=== PATIENT | female | born 1935 | race Caucasian/White ===

== ENCOUNTER 2023-05-03 15:39 | Inpatient (IN) | payer OTHER, SELFPAY ==
[2023-05-03] VITALS (10 sets, daily range): BP systolic 111–128; BP diastolic 69–85; BMI 32.8; BMI 36.3
--- NOTE | 2023-05-03 11:43 | ED.GENMED ---
History of Present Illness
<Kareen Montilla NP - Last Filed: 05/03/23 20:36>
General
Chief Complaint: Breathing Problem
Source: patient
Exam Limitations: none
Time Seen by Provider: 05/03/23 11:35
Nursing documentation reviewed up to this point in time: agreed with
Travel History
Have you had any contact with someone who has COVID-19?: Unable to Answer
Do you have any symptoms of coronavirus? Fever > 100 degrees, chills, cough, shortness of breath, sore throat, loss of taste or smell, muscle aches, or headache?: Unable to Answer
History of Present Illness
History of Present Illness:
87-year-old female with history of CHF with PEF, dysphagia, ambulatory dysfunction, COPD, HLD, HTN, A-fib, hypothyroid, severe mood disorder presents from home via ambulance for hypoxemia, SOB, cough. Pt denies CP, abd pain, n/v/d/c.
Spoke with son Jeet Marino her daughter, with whom she lives lives, stated that a week ago she got a cold like everybody else in the household, no fever, palliative care nurses, and 'quite frequently,' last week it was 'just a cold,'
Daughter has been giving her hot tea and lemon, she thinks she may have given her too much fluid over the past week
Feet are a little swollen and 'more puffy,' given an extra Lasix 10 mg x 2 days, per her tensile tester Stacy Garcia and Dr. DAWIT Smith, last extra dose was 2 days ago,
Palliative care came in today
They recommend that she get sent here because her heart rate is high and her oxygen 'was on the low side.' Ambulance personnel said mid to high 80s. Daughter states she is typically 95 to 96% on room air, no home oxygen,
She was on home oxygen after being discharged in March, it was DC'd after a week
Daughter concerned as patient is on psych meds and depression medication and every time she gets sent to the hospital they take her off of that medicine. Requesting she not be taking off of it this admission.
Patient had all her meds this morning
Past History
<Kareen Montilal, DEPUTY DIRECTOR OF FINANCE - Last Filed: 05/03/23 20:36>
Past History
ED Past Medical History: Arrthythmia (Atrial fibrillation on aspirin), HTN, Hypercholesterolemia and Psychiatric (Mood disorder)
Social History
Tobacco: Non-smoker
Alcohol: None
Living: with family
Review of Systems
<Kareen Montilla, DEPUTY DIRECTOR OF FINANCE - Last Filed: 05/03/23 20:36>
Review of Systems
Allergies reviewed?: Yes
All Other Systems: ROS reviewed and negative except as documented in HPI and ROS
Constitutional: Denies fever
Respiratory: Reports cough and trouble breathing
Cardiac: Denies chest pain
ABD/GI: Denies abdominal pain, nausea, vomiting or diarrhea
: Reports incontinence; Denies dysuria or difficulty voiding
Musculoskeletal: Reports edema
Skin: Reports no symptoms
Neurological: Reports other (Dementia, speech garbled but comprehensible (chronic))
Phy Exam
<Kareen Montilla, DEPUTY DIRECTOR OF FINANCE - Last Filed: 05/03/23 20:36>
Physical Exam
Physical Exam:
GENERAL: No acute distress. A&Ox3.
CONSTITUTIONAL: Afebrile.
EYES: PERRL, conjunctivae normal
ENMT: Dry mucus membranes, Pharynx nl
RESPIRATORY: Regular respirations, mildly labored, lungs with crackles in bases, coarse junky cough. Pulse ox 88% RA, 96% on 4L NC
CARDIOVASCULAR: Irregular rate and rhythm, no murmurs, no rubs.
GI: Soft, nontender, normal BS
MUSCULOSKELETAL: Moves with ease. Well perfused.
SKIN: Warm, dry, pink
PSYCH: Normal mood and affect. Well kept, interactive and appropriate
NEUROLOGIC: Awake, alert, . No focal neurological deficits
Scores
<Kareen Montilla, DEPUTY DIRECTOR OF FINANCE - Last Filed: 05/03/23 20:36>
Heart Failure Risk
Heart Failure Risk Score: Yes
History of Stroke or TIA: Yes
History of intubation for respiratory distress: No
Heart rate on ED arrival >/= 110: No
SaO2 <90% on arrival on room air: No
HR >/=110 during 3min walk test (or too ill to perform test): No
ECG has acute ischemic changes: No
Urea >/=12mmol/L (BUN 33.6mg/dL): No
Serum CO2>/=35mmol/L: No
Troponin I or T elevated to NM Level (0.4mg/dL): No
NT-proBNP >/=5,000ng/L (5,000pg/ml): No
HF Risk Score: 1
Admission Status: MEDIUM RISK 5.1% Consider observation or discharge to home with homecare & f/u visit to PCP/[employer], or SNF for treatment
Course
<Kareen Montilla, DEPUTY DIRECTOR OF FINANCE - Last Filed: 05/03/23 20:36>
Orders/Labs/Results
Orders:
Orders
05/03/23 11:30
Electrocardiogram (*1) Urgent
Reason for Study: Shortness of Breath
05/03/23 11:31
EKG- Treatment ONCE
05/03/23 11:40
Influenza A+B Rapid Molecular Urgent
JOSHUA Source: Nasal Swab
Specimen Description:
05/03/23 11:41
COVID-19 Antigen Urgent
Source: Nasal Swab
Complete Blood Count/With Diff Urgent
Comprehensive Metabolic Panel Urgent
05/03/23 11:52
CR Chest Portable - 1 View Urgent
Comment:
Reason For Exam: SOB. hypoxia
Reason Study Needs to be Portable: Other
05/03/23 12:15
NT-proBNP Urgent
Troponin I Urgent
05/03/23 Dinner
Cholesterol Lowering
At Your Request: Limited, Meeting Facilitator Required
Cholesterol Lowering: Sodium, 2 Gram
IDDSI 6 - Small Bite/Soft
05/03/23 15:23
Admit/Transfer Patient As Directed
Co-Sign Provider:
Level of Care: Inpatient admission
Assign to:: Telemetry
Physician / Group: Brittany
Diagnosis: Hypoxia, Heart Failure
Reason for Telemetry: Acute Heart Failure
Date to Stop Telemetry: 05/06/23
Time to Stop Telemetry: 11:00
Reason for Hospitalization: IV diuretics, supplemental oxygen
Expected length of stay greater than two midnights?: Yes
ELOS- Estimated Length of Stay in days: 3
I certify the patient meets the requirements for IP care: Yes
05/03/23 15:25
Code Status As Directed
Resuscitation Status: Full Code
05/03/23 15:28
Furosemide [Lasix] 40 mg IV NOW STA
05/03/23 15:34
CARDIOLOGY CONSULT Routine
Consulting Provider: Mitch Ovalle
Was physician already notified: Yes
05/03/23 16:54
Echo 2D MMode Color/Doppler Routine
Reason for Study: heart failure
HF DIETARY CONSULT Routine
HF EDUCATOR CONSULT Routine
Comment:
Activity As Directed
Activity Level: Out of Bed-Early Mobility
Head of Bed-Restrictions As Directed
Elevation Level: 90 degrees
Frequency: With meals
Intake/ Output As Directed
Frequency: Per unit guidelines
Patient Education As Directed
Type: CHF folder
Comment: give on admission. Document in Interdisciplinary Education record
Precautions As Directed
Type of Precautions: Aspiration
Sleep Apnea Assessment by RN As Directed
Comment:
Physician Instructions:
Vital Signs As Directed
Frequency: Other
Additional Instructions:: Q12 or per unit guidelines if more frequent.
Weight As Directed
Frequency: Daily
Type of Scale: Standing Scale
Comment: Daily morning weight. If unable to stand, use balanced bed scale.
Weight As Directed
Frequency: Once
Type of Scale: Standing Scale
Comment: Upon Admission. If unable to stand, use balanced bed scale.
Pulse Ox/cont/shift [RESP] Routine
Quantity: 1
Special Instructions: Daily pulse oximetry at rest. If greater than 92% at rest also obtain pulse oximetry
while ambulating as tolerated.
Ot Eval And Treat Routine
Pt Eval And Treat Routine
Activity Level: Out of Bed-Early Mobility
DX Deep Vein Thrombosis Video Routine
05/03/23 18:00
Enoxaparin Sodium [Lovenox] 40 mg SC QPM
05/03/23 20:00
Alprazolam [Xanax] 0.25 mg PO BID
Amlodipine [Norvasc] 2.5 mg PO BID
Carvedilol [Coreg] 3.125 mg PO BID
Memantine HCl [Namenda] 10 mg PO BID
05/03/23 22:00
Atorvastatin [Lipitor] 20 mg PO HS
Doxepin [Sinequan] 25 mg PO HS
Risperidone [Risperdal] 0.5 mg PO HS
05/04/23 06:00
Basic Metabolic Panel IN AM
Complete Blood Count/No Diff IN AM
Magnesium IN AM
TSH Reflex To Free T4 IN AM
05/04/23 08:00
Aspirin Chewable [Low Strength Aspirin] 81 mg PO DAILY
Fluoxetine HCl [Prozac] 20 mg PO DAILY
Furosemide [Lasix] 40 mg IV BID AT 0800,1600
Spironolactone [Aldactone] 12.5 mg PO DAILY
05/05/23 06:00
Basic Metabolic Panel IN AM
05/06/23 06:00
Basic Metabolic Panel IN AM
05/06/23 11:00
DC Protocol for Telemetry ONCE
Abnormal Lab Results
05/03/23
11:41
MCHC 31.9 L g/dL
(33.0-37.0)
RDW 15.3 H %
(11.5-14.5)
Abs Immat Gran (auto) 0.1 H 10^3/uL
(0-0.05)
Absolute Neuts (auto) 7.6 H 10^3/uL
(1.4-6.5)
Absolute Lymphs (auto) 0.9 L 10^3/uL
(1.2-3.4)
Absolute Monos (auto) 0.9 H 10^3/uL
(0.1-0.6)
Immature Gran % 1.0 H %
(0-0.5)
Neutrophils % 79.1 H %
(42.2-75.2)
Lymphocytes % 9.0 L %
(20.5-51.1)
Monocytes % 9.5 H %
(1.7-9.3)
Carbon Dioxide 34 H mmol/L
(22-30)
BUN 25 H mg/dl
(7-17)
Glucose 139 H mg/dl
(70-99)
Alkaline Phosphatase 164 H U/L
(38-126)
Albumin 3.4 L g/dl
(3.5-5.0)
05/03/23 11:41
05/03/23 11:41
Vital Signs
Initial and Last Documented VS:
Initial Vital Signs
Temp Pulse Resp BP Pulse Ox
98.3 F 105 25 120/77 96
05/03/23 11:35 05/03/23 11:35 05/03/23 11:35 05/03/23 11:35 05/03/23 11:35
Last Documented Vital Signs
Temp Pulse Resp BP Pulse Ox
97.6 F 107 18 124/85 94
05/03/23 17:00 05/03/23 17:00 05/03/23 17:00 05/03/23 17:00 05/03/23 17:45
<Ariane Agarwal MD - Last Filed: 05/03/23 13:50>
Orders/Labs/Results
Orders:
Orders
05/03/23 11:30
Electrocardiogram (*1) Urgent
Reason for Study: Shortness of Breath
05/03/23 11:31
EKG- Treatment ONCE
05/03/23 11:40
Influenza A+B Rapid Molecular Urgent
JOSHUA Source: Nasal Swab
Specimen Description:
05/03/23 11:41
COVID-19 Antigen Urgent
Source: Nasal Swab
Complete Blood Count/With Diff Urgent
Comprehensive Metabolic Panel Urgent
05/03/23 11:52
CR Chest Portable - 1 View Urgent
Comment:
Reason For Exam: SOB. hypoxia
Reason Study Needs to be Portable: Other
05/03/23 12:15
NT-proBNP Urgent
Troponin I Urgent
05/03/23 Dinner
Cholesterol Lowering
At Your Request: Limited, Meeting Facilitator Required
Cholesterol Lowering: Sodium, 2 Gram
IDDSI 6 - Small Bite/Soft
05/03/23 15:23
Admit/Transfer Patient As Directed
Co-Sign Provider:
Level of Care: Inpatient admission
Assign to:: Telemetry
Physician / Group: Brittany
Diagnosis: Hypoxia, Heart Failure
Reason for Telemetry: Acute Heart Failure
Date to Stop Telemetry: 05/06/23
Time to Stop Telemetry: 11:00
Reason for Hospitalization: IV diuretics, supplemental oxygen
Expected length of stay greater than two midnights?: Yes
ELOS- Estimated Length of Stay in days: 3
I certify the patient meets the requirements for IP care: Yes
05/03/23 15:25
Code Status As Directed
Resuscitation Status: Full Code
05/03/23 15:28
Furosemide [Lasix] 40 mg IV NOW STA
05/03/23 15:34
CARDIOLOGY CONSULT Routine
Consulting Provider: Mitch Ovalle
Was physician already notified: Yes
05/03/23 16:54
Echo 2D MMode Color/Doppler Routine
Reason for Study: heart failure
HF DIETARY CONSULT Routine
HF EDUCATOR CONSULT Routine
Comment:
Activity As Directed
Activity Level: Out of Bed-Early Mobility
Head of Bed-Restrictions As Directed
Elevation Level: 90 degrees
Frequency: With meals
Intake/ Output As Directed
Frequency: Per unit guidelines
Patient Education As Directed
Type: CHF folder
Comment: give on admission. Document in Interdisciplinary Education record
Precautions As Directed
Type of Precautions: Aspiration
Sleep Apnea Assessment by RN As Directed
Comment:
Physician Instructions:
Vital Signs As Directed
Frequency: Other
Additional Instructions:: Q12 or per unit guidelines if more frequent.
Weight As Directed
Frequency: Daily
Type of Scale: Standing Scale
Comment: Daily morning weight. If unable to stand, use balanced bed scale.
Weight As Directed
Frequency: Once
Type of Scale: Standing Scale
Comment: Upon Admission. If unable to stand, use balanced bed scale.
Pulse Ox/cont/shift [RESP] Routine
Quantity: 1
Special Instructions: Daily pulse oximetry at rest. If greater than 92% at rest also obtain pulse oximetry
while ambulating as tolerated.
Ot Eval And Treat Routine
Pt Eval And Treat Routine
Activity Level: Out of Bed-Early Mobility
DX Deep Vein Thrombosis Video Routine
05/03/23 18:00
Enoxaparin Sodium [Lovenox] 40 mg SC QPM
05/03/23 20:00
Alprazolam [Xanax] 0.25 mg PO BID
Amlodipine [Norvasc] 2.5 mg PO BID
Carvedilol [Coreg] 3.125 mg PO BID
Memantine HCl [Namenda] 10 mg PO BID
05/03/23 22:00
Atorvastatin [Lipitor] 20 mg PO HS
Doxepin [Sinequan] 25 mg PO HS
Risperidone [Risperdal] 0.5 mg PO HS
05/04/23 06:00
Basic Metabolic Panel IN AM
Complete Blood Count/No Diff IN AM
Magnesium IN AM
TSH Reflex To Free T4 IN AM
05/04/23 08:00
Aspirin Chewable [Low Strength Aspirin] 81 mg PO DAILY
Fluoxetine HCl [Prozac] 20 mg PO DAILY
Furosemide [Lasix] 40 mg IV BID AT 0800,1600
Spironolactone [Aldactone] 12.5 mg PO DAILY
05/05/23 06:00
Basic Metabolic Panel IN AM
05/06/23 06:00
Basic Metabolic Panel IN AM
05/06/23 11:00
DC Protocol for Telemetry ONCE
Abnormal Lab Results
05/03/23
11:41
MCHC 31.9 L g/dL
(33.0-37.0)
RDW 15.3 H %
(11.5-14.5)
Abs Immat Gran (auto) 0.1 H 10^3/uL
(0-0.05)
Absolute Neuts (auto) 7.6 H 10^3/uL
(1.4-6.5)
Absolute Lymphs (auto) 0.9 L 10^3/uL
(1.2-3.4)
Absolute Monos (auto) 0.9 H 10^3/uL
(0.1-0.6)
Immature Gran % 1.0 H %
(0-0.5)
Neutrophils % 79.1 H %
(42.2-75.2)
Lymphocytes % 9.0 L %
(20.5-51.1)
Monocytes % 9.5 H %
(1.7-9.3)
Carbon Dioxide 34 H mmol/L
(22-30)
BUN 25 H mg/dl
(7-17)
Glucose 139 H mg/dl
(70-99)
Alkaline Phosphatase 164 H U/L
(38-126)
Albumin 3.4 L g/dl
(3.5-5.0)
05/03/23 11:41
05/03/23 11:41
Vital Signs
Initial and Last Documented VS:
Initial Vital Signs
Temp Pulse Resp BP Pulse Ox
98.3 F 105 25 120/77 96
05/03/23 11:35 05/03/23 11:35 05/03/23 11:35 05/03/23 11:35 05/03/23 11:35
Last Documented Vital Signs
Temp Pulse Resp BP Pulse Ox
97.6 F 107 18 124/85 94
05/03/23 17:00 05/03/23 17:00 05/03/23 17:00 05/03/23 17:00 05/03/23 17:45
<Kareen Bailey Day, DEPUTY DIRECTOR OF FINANCE - Last Filed: 05/03/23 20:36>
MDM/Problems Addressed
Differential Diagnosis Includes:
CHF, PNA, Covid, Flu
MDM/Problems Addressed:
87-year-old female with history of CHF with PEF, dysphagia, ambulatory dysfunction, COPD, HLD, HTN, A-fib, hypothyroid, severe mood disorder presents from home via ambulance for hypoxemia, SOB, cough. Pt denies CP, abd pain, n/v/d/c.
Spoke with son Jeet Marino her daughter, with whom she lives lives, stated that a week ago she got a cold like everybody else in the household, no fever, palliative care nurses, and 'quite frequently,' last week it was 'just a cold,'
Daughter has been giving her hot tea and lemon, she thinks she may have given her too much fluid over the past week
Feet are a little swollen and 'more puffy,' given an extra Lasix 10 mg x 2 days, per her tensile tester Stacy Garcia and Dr. DAWIT Smith, last extra dose was 2 days ago,
Palliative care came in today
They recommend that she get sent here because her heart rate is high and her oxygen 'was on the low side.' Ambulance personnel said mid to high 80s. Daughter states she is typically 95 to 96% on room air, no home oxygen,
She was on home oxygen after being discharged in March, it was DC'd after a week
Daughter concerned as patient is on psych meds and depression medication and every time she gets sent to the hospital they take her off of that medicine. Requesting she not be taking off of it this admission.
Patient had all her meds this morning
05/03/2023 1241 PM
CBC with no clinically significant abnormality
BNP was mildly elevated 6, BUN mildly elevated at 25 otherwise no clinically significant abnormality
COVID-negative
Negative influenza A and B
Chest x-ray: Radiology report read: IMPRESSION:
1. Streaky opacity at the left lung base, which may represent subsegmental atelectasis or early pneumonia.
2. Otherwise clear lungs.
3. Mild cardiomegaly without evidence of decompensated congestive heart failure.
05/03/2023 1412 PM
Troponin within normal limits
BNP [address]
Case discussed with Dr[address] Agarwal who evaluated pt and spoke with daughter at bedside
Pt to be admitted for acute on chronic hypoxemia, PNA and CHF
Hospitalist notified of admission
<Kareen Montilla DEPUTY DIRECTOR OF FINANCE - Last Filed: 05/03/23 20:36>
*Pulse Oximetry
Patient hypoxic: yes
Comment: 88% RA
*EKG
EKG Intrepretation Date: 05/03/23
Interpretation: abnormal
Rate: normal
Rhythm: a-fib and PVC's
[place]: normal axis
QRS Pattern: normal QRS
Ischemia: no ischemia
*Critical Care Note
Total Time (30-74mins, 75-104mins- exclusive of procedures): Not Applicable
ED Attending Note
<Kareen Montilla DEPUTY DIRECTOR OF FINANCE - Last Filed: 05/03/23 20:36>
-
Portions of this chart may have been created with voice recognition software.� Occasional wrong word or��sound alike� substitutions may have occurred due to the inherent limitations of voice recognition software.
<Ariane Agarwal MD - Last Filed: 05/03/23 13:50>
ED Attending Note
Patient seen and examined by attending physician: Yes
I performed the substantive portion of visit, reviewed & personally made and approve the management plan that is documented in note by myself or SWATI.: Yes
ED Attending Note:
Patient arrives with increased work of breathing and cough. On exam, patient appears sleepy but is arousable. She has crackles and is coughing. Patient will be admitted for community-acquired pneumonia and there is likely also an element of CHF.
Patient's abdomen is soft. She denies chest pain.
Discharge Plan
Departure
Patient Disposition: Admit
Date of Disposition: 05/03/23
Time of Disposition: 14:08
Presentation/result/management discussed w/ accepting MD/DO: Hospitalist
Condition: Fair
Discharge Problem:
Pneumonia, CHF (congestive heart failure), Acute and chronic respiratory failure ([id number])
Interventions
Interventions:
*Risk Screen - Suicide Last Done: 05/03/23 17:50
*General Assessment Last Done: 05/03/23 11:37
*Neglect/Abuse Screening Last Done: 05/03/23 11:37
ED- Fall Risk Assessment Last Done: 05/03/23 16:46
*ED COVID-19 Vaccine History Last Done: 05/03/23 11:37
*Nursing Disposition Last Done: 05/03/23 16:46
ED- Cardiac Assessment Last Done: 05/03/23 11:45
ED- Pulmonary Assessment Last Done: 05/03/23 11:45
Discharge Date and Time
Discharge Date/Time: 05/03/23 16:46
[2023-05-03 11:56] LABS: % Basophils 0.4 % (0-2); % Monocytes 9.5 % (1.7-9.3); % Neutrophils 79.1 % (42.2-75.2); Absolute Eosinophils 0.1 10^3/uL (0-0.7); Absolute Immature Granulocytes 0.1 10^3/uL (0-0.05); Absolute Lymphocytes 0.9 10^3/uL (1.2-3.4); Absolute Monocytes 0.9 10^3/uL (0.1-0.6); Absolute Neutrophils 7.6 10^3/uL (1.4-6.5); Hematocrit 38.9 % (37.0-47.0); Hemoglobin 12.4 g/dL (12.0-16.0); Mean Corp Hgb Conc. 31.9 g/dL (33.0-37.0); Mean Corpuscular Hgb 28.8 pg (27.0-31.0); Mean Corpuscular Volume 90.3 fL (81.0-99.0); Mean Platelet Volume 10.1 fL (7.4-10.4); Nucleated Red Blood Cells % 0 %; Platelet Count 292 10^3/uL (130-400); Red Blood Cell Count 4.31 10^6/uL (4.20-5.40); Red Cell Dist. Width 15.3 % (11.5-14.5); White Blood Cell Count 9.6 10^3/uL (4.8-10.8)
[2023-05-03 12:09] LABS: ALT (SGPT) 24 U/L (0-35); AST (SGOT) 24 U/L (14-36); Albumin 3.4 g/dl (3.5-5.0); Alkaline Phosphatase 164 U/L (38-126); Blood Urea Nitrogen 25 mg/dl (7-17); Calcium 8.6 mg/dl (8.4-10.2); Carbon Dioxide 34 mmol/L (22-30); Chloride 103 mmol/L (98-107); Estimated Creatinine Clearance 54 ml/min; Glucose 139 mg/dl (70-99); Potassium 3.9 mmol/L (3.5-5.1); Sodium 141 mmol/L (135-145); Total Bilirubin 0.7 mg/dl (0.2-1.3); Total Protein 6.4 g/dl (6.3-8.2); eGFR > 60.00
[2023-05-03 12:18] LABS: COVID-19 Antigen Negative (Negative)
[2023-05-03 13:00] LABS: NT-proBNP 2630 pg/ml; Troponin I < 0.012 ng/ml
--- NOTE | 2023-05-03 13:11 | CM ---
CM was updated by CM director Farida Kwon that patient will be presenting to Emergency Room. Patient is known to [facility]. CM will continue to follow for needs.
--- NOTE | 2023-05-03 15:01 | HPS.HSE ---
Addendum entered and electronically signed by Duglas Soto MD 05/03/23 21:32:
I independently saw and examined the patient on 05/03/23.
The ALYCIA's note was reviewed and I agree with the note.
Comment:
87 y/o female past medical history of chronic heart failure with preserved ejection fraction, permanent a-fib, right bundle branch block, bradycardia and falls, hypertension (with previous hypertensive encephalopathy), hyperlipidemia, COPD and
advanced dementia who presented with increased shortness of breath. Patient had a cold several weeks ago at which time the daughter was giving her increased fluids. Patient was given some additional diuretics due 'more puffy' feet. Palliative care
nurse visited the patient, and EMS was called due to hypoxia.
Vital Signs
Afebrile
HR in the 90s to low 100s
BP okay
RR okay
Needing 4 L NC oxygen to maintain oxygen saturation in the 90s
Physical Exam
General: No Apparent Distress
HEENT: Anicteric, Moist mucous membranes and Oxygen (Nasal Cannula)
Respiratory: Rhonchi (Anteriorly) and Decreased Breath Sounds (Bilateral Bases), Crackles
Cardiac: S1/S2 and Irregular Rhythm
GI: Soft and Non Tender. Positive bowel sounds.
Musculoskeletal: No Cyanosis and Other (+1 pitting edema bilateral lower extremities)
Skin: Warm and Dry
Neuro: Awake, Alert and Nonfocal/grossly intact
Assessment/Plan
Acute Hypoxic Respiratory Insufficiency secondary to Acute CHF
-Continue supplemental oxygen
Acute on Chronic Heart Failure with Preserved Ejection Fraction
-Consulted Cardiology, recommendations appreciated
-Check Echo
-Continue Lasix 40mg IV BID
-Continue spironolactone
-Monitor Is&Os and Daily Weights
Permanent Atrial Fibrillation
-Patient is not on anticoagulation as outpatient
-Continue Coreg for rate control
Right Bundle Branch Block
Bradycardia and Falls
Essential Hypertension (with prior history of hypertensive encephalopathy)
-Continue amlodipine and Coreg with hold parameters
Hyperlipidemia
-Continue atorvastatin
COPD
Advanced Dementia
-Continue memantine
Anxiety/Depression
-Continue alprazolam, doxepin, fluoxetine and risperidone as prior to admission
Dysphagia
-Continue Aspiration precautions - Sit up-right/out of bed for meals
-Continue soft solids
DVT proph: Lovenox
Code Status: Full Code
Original Note:
Family Physician
-
Family Physician: Jemal Allred
Chief Complaint
-
Hypoxia
History of Present Illness
Patient is 87 y/o female past medical history of heart failure, a-fib, hypertension, and advanced dementia who presents with increased shortness of breath. Patient unable to provide history therefore history was obtained from family. Patient had a
cold several weeks ago at which time the daughter was giving her increased fluids. Patient was given some additional diuretics due 'more puffy' feet. Palliative care nurse visited the patient, and EMS was called due to hypoxia.
Medical History
Past Medical History
Past Medical History: Reports Other
Additional Past Medical History:
Paroxysmal Atrial Fibrillation
Chronic HFpEF
Essential Hypertension
Hyperlipidemia
Chronic RBBB
Advanced Dementia
Major Depressive Disorder
Dysphagia
Past Surgical History: Reports Other
Additional Past Surgical History:
Appendectomy
Social History
Unable to obtain full social history at this time due to: Dementia
Living: With Family
Family History
Family History: Unable to Obtain
Allergies / Home Medications
Allergies reflects when Allergies were last updated in [facility].
Home Medications with original date entered in [facility]
Allergy/Medication List:
Allergies
Allergy/AdvReac Type Severity Reaction Status Date / Time
paroxetine Allergy Unknown Verified 05/03/23 13:51
Sulfa (Sulfonamide Allergy Unknown Verified 05/03/23 13:51
Antibiotics)
Home Medications
vitamins A,C,P-tdvi-iqwsrf 4,296 mcg-226 mg-90 mg capsule (PreserVision AREDS) 1 cap PO HS Supplement 07/18/18
alprazolam 0.5 mg tablet 0.25 mg PO BID Mental Health/Anxiety 04/21/20
aspirin 81 mg chewable tablet 81 mg PO DAILY Supplement 04/21/20
doxepin 25 mg capsule 25 mg PO HS Mental Health/Anxiety 04/21/20
risperidone 0.5 mg tablet 0.5 mg PO HS Mental Health/Anxiety 04/21/20
carvedilol 3.125 mg tablet 3.125 mg PO BID 30 days #60 tabs 03/19/21
amlodipine 2.5 mg tablet 2.5 mg PO BID #60 tabs 12/23/21
spironolactone 25 mg tablet 12.5 mg PO DAILY #30 tabs 12/23/21
torsemide 20 mg tablet 20 mg PO DAILY #30 tabs 12/23/21
atorvastatin 20 mg tablet (Lipitor) 20 mg PO HS 05/03/23
fluoxetine 20 mg capsule (Prozac) 20 mg PO DAILY 05/03/23
guaifenesin 600 mg tablet, extended release 12 hr (Mucinex) 600 mg PO BIDPRN PRN cough 05/03/23
memantine 10 mg tablet 10 mg PO BID 05/03/23
polyethylene glycol 3350 17 gram oral powder packet (Miralax) 17 g PO DAILYPRN PRN constipation 05/03/23
Review of Systems
-
Unable to obtain full review of systems at this time due to: Dementia
Physical Exam
Vital Signs
Vital Signs
Temp Pulse Resp BP Pulse Ox
98.3 F 89 19 114/74 95
05/03/23 11:35 05/03/23 14:15 05/03/23 14:15 05/03/23 14:00 05/03/23 14:15
Physical Exam
General: No Apparent Distress, Comfortable and Conversant
HEENT: Anicteric, Moist mucous membranes and Oxygen (Nasal Cannula)
Respiratory: Rhonchi (Anteriorly) and Decreased Breath Sounds (Bilateral Bases)
Cardiac: S1/S2 and Irregular Rhythm; No Tachycardia
GI: Soft and Non Tender
Rectal: Deferred by Provider
Musculoskeletal: No Clubbing, No Cyanosis and Other (+1 pitting edema bilateral lower extremities)
Skin: Warm and Dry
Neuro: Awake, Alert and Nonfocal/grossly intact
Laboratory Results
-
05/03/23 11:41
05/03/23 11:41
Laboratory Results
Total Bilirubin 0.7 mg/dl (0.2-1.3) 05/03/23 11:41
AST 24 U/L (14-36) 05/03/23 11:41
ALT 24 U/L (0-35) 05/03/23 11:41
Alkaline Phosphatase 164 U/L (38-126) H 05/03/23 11:41
Troponin I < 0.012 ng/ml 05/03/23 12:15
Data Reviewed
-
Diagnostic Radiology: Report Reviewed by me
Lab Data: Labs Reviewed by me
Impression/Plan
-
Acute Hypoxic Respiratory Insufficiency secondary to Acute CHF
-Continue supplemental oxygen
Acute on Chronic Heart Failure
-Consult Cardiology
-Check Echo
-Continue Lasix 40mg IV BID
-Continue spironolactone
-Monitor Is&Os and Daily Weights
Atrial Fibrillation, patient currently in rate controlled a-fib of unknown duration
-Patient is not on anticoagulation as outpatient
-Continue Coreg for rate control
Essential Hypertension
-Continue amlodipine and Coreg with hold parameters
Hyperlipidemia
-Continue atorvastatin
Advanced Dementia
-Continue memantine
Anxiety/Depression
-Continue alprazolam, doxepin, fluoxetine and risperidone as prior to admission
Dysphagia
-Continue Aspiration precautions - Sit up-right/out of bed for meals
-Continue soft solids
DVT proph: Lovenox
Code Status: Full Code
[2023-05-03] MEDS: LASIX 40 MG IV (15:36)
--- NOTE | 2023-05-03 16:10 | CON.CAR ---
Addendum entered and electronically signed by Mitch Ovalle MD 05/03/23 16:41:
I saw and examined the patient.
The Manager Hematology's note was reviewed and I agree with the note.
Comment: Briefly, 87-year-old woman past medical history of heart failure with preserved ejection fraction and permanent atrial fibrillation as well as advanced dementia presenting with worsening shortness of breath
History is difficult to obtain given patient's baseline dementia
Patient was hypoxic and placed on 4 L of supplemental O2 via nasal cannula
proBNP elevated to 2600
Chest x-ray with mild pulmonary vascular congestion�my interpretation
Suspect she is mildly volume overloaded based on exam
Plan for IV diuresis with Lasix twice daily to see if this improves her respiratory status
Monitor daily weights, renal function and electrolytes
Check echo in AM
Original Note:
Consultation
Consultation Request
Date/Time Consultation Requested: 05/03/2023
Date/Time Consultation Performed: 05/03/2023
Requesting Provider: Dr. Soto
Performing Provider: Dr. Ovalle
Reason for Consultation: CHF
Medical History
-
History of Present Illness:
HPI: June is a 89-year-old female with past medical history of chronic HFpEF, permanent A-fib, bradycardia and falls, RBBB, hypertension with prior hypertensive encephalopathy, dementia, COPD, and hyperlipidemia who presents to ER for evaluation
of worsening shortness of breath. Patient is unable to provide history given advanced dementia and history is obtained from medical record. She reportedly had an upper respiratory infection a few weeks ago and at this time, her daughter was giving
her more fluids to help get her through this viral illness. She continued to be hypoxic and came to ER for further evaluation. In ER, patient was found to have evidence of volume overload on exam with proBNP 2,630. She is hypoxic and on 4 L of
oxygen currently. She was admitted for further workup and evaluation. Cardiology consulted given acute heart failure exacerbation. Patient has no acute complaints currently.
PMH:
Chronic HFpEF
Permanent Afib
h/o sinus bradycardia and falls 08/2020
RBBB
HTN
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
Advanced dementia
COPD
h/o major depressive disorder
Hyperlipidemia
Past Medical History
Past Medical History: Other (In HPI)
Past Surgical History: Appendectomy
Social History
Tobacco: Non-Smoker
Alcohol: None
Drug: None
Personal:
Living: With Family
Family History
Family History: Reviewed & Not Pertinent
Allergies / Home Medications
Allergy/AdvReac Type Severity Reaction Status Date / Time
paroxetine Allergy Unknown Verified 05/03/23 13:51
Sulfa (Sulfonamide Allergy Unknown Verified 05/03/23 13:51
Antibiotics)
Medication Instructions Recorded Confirmed Type
vitamins A,C,J-ealj-flxczy 4,296 1 cap PO HS Supplement 07/18/18 05/03/23 History
mcg-226 mg-90 mg capsule
(PreserVision AREDS)
alprazolam 0.5 mg tablet 0.25 mg PO BID Mental 04/21/20 05/03/23 History
Health/Anxiety
aspirin 81 mg chewable tablet 81 mg PO DAILY Supplement 04/21/20 05/03/23 History
doxepin 25 mg capsule 25 mg PO HS Mental Health/Anxiety 04/21/20 05/03/23 History
risperidone 0.5 mg tablet 0.5 mg PO HS Mental Health/Anxiety 04/21/20 05/03/23 History
carvedilol 3.125 mg tablet 3.125 mg PO BID 30 days #60 tabs 03/19/21 05/03/23 Rx
amlodipine 2.5 mg tablet 2.5 mg PO BID #60 tabs 12/23/21 05/03/23 Rx
spironolactone 25 mg tablet 12.5 mg PO DAILY #30 tabs 12/23/21 05/03/23 Rx
torsemide 20 mg tablet 20 mg PO DAILY #30 tabs 12/23/21 05/03/23 Rx
atorvastatin 20 mg tablet (Lipitor) 20 mg PO HS 05/03/23 05/03/23 History
fluoxetine 20 mg capsule (Prozac) 20 mg PO DAILY 05/03/23 05/03/23 History
guaifenesin 600 mg tablet, 600 mg PO BIDPRN PRN cough 05/03/23 05/03/23 History
extended release 12 hr (Mucinex)
memantine 10 mg tablet 10 mg PO BID 05/03/23 05/03/23 History
polyethylene glycol 3350 17 gram 17 g PO DAILYPRN PRN constipation 05/03/23 05/03/23 History
oral powder packet (Miralax)
Review of Systems
-
History Source: Patient
All other systems: Negative unless noted
Physical Exam
Vital Signs
Temp Pulse Resp BP Pulse Ox
98.3 F 99 19 120/78 95
05/03/23 11:35 05/03/23 16:00 05/03/23 16:00 05/03/23 15:38 05/03/23 16:00
Lab Results
05/03/23 11:41
05/03/23 11:41
Troponin I < 0.012 ng/ml 05/03/23 12:15
Sxa-I-Tedqiyvyawa Pept 2630 pg/ml 05/03/23 12:15
Physical Exam
General: Well Developed, Well Nourished and No Apparent Distress
HEENT: Normocephalic and Anicteric
Respiratory: Crackles, Rhonchi and Non Labored Respirations
Cardiac: S1/S2 and Irregular Rhythm
GI: Soft, Non Tender and Non Distended
Musculoskeletal: No Clubbing, No Cyanosis and Edema
Skin: Warm and Dry
Neuro: Awake, Alert and Nonfocal/Grossly Intact
Psych: Calm
Impression / Plan
-
PCP: Dr. Allred
Vrt Mechanic: Dr. Serrano
Impression:
Acute on Chronic HFpEF
Permanent Atrial fibrillation
h/o sinus bradycardia and falls 08/2020
RBBB
HTN
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
Advanced dementia
COPD
h/o major depressive disorder
Hyperlipidemia
ECHO 09/09/20: EF 75%.� RV normal size and function.� Mild MR.� No or AI.� Trace TR.� PAP 29 mmHg.� This was compared to echo from October 2007, no significant interval changes seen.
Echo 12/17/21: EF 65 to 70%, concentric LVH, stage I DD, trace MR/TR, PAP 35 mmHg
Echo 05/04/2023: Study pending
Plan:
-Presented with worsening shortness of breath and hypoxia. Had recent upper respiratory infection and was drinking fluids.
-In acute heart failure on arrival with proBNP 2630. Given a dose of IV Lasix in the emergency room with good urine output.
-Continue IV Lasix 40 mg twice daily. Creatinine stable at 0.8. Follow with diuresis.
-Follow daily weights, I&O's. Unknown dry weight.
-Remains in rate controlled atrial fibrillation on review of EKG and on telemetry.
-Continue Coreg 3.125 mg twice daily. Heart rates stable. Not anticoagulated by family wishes.
-Most recent echo 12/17/2021 with preserved ejection fraction. Repeat echo in AM.
-BP stable. Continue spironolactone, Coreg, and amlodipine.
-On 4 L NC. Wean as able.
HPI: June is a 89-year-old female with past medical history of chronic HFpEF, permanent A-fib, bradycardia and falls, RBBB, hypertension with prior hypertensive encephalopathy, dementia, COPD, and hyperlipidemia who presents to ER for evaluation
of worsening shortness of breath. Patient is unable to provide history given advanced dementia and history is obtained from medical record. She reportedly had an upper respiratory infection a few weeks ago and at this time, her daughter was giving
her more fluids to help get her through this viral illness. She continued to be hypoxic and came to ER for further evaluation. In ER, patient was found to have evidence of volume overload on exam with proBNP 2,630. She is hypoxic and on 4 L of
oxygen currently. She was admitted for further workup and evaluation. Cardiology consulted given acute heart failure exacerbation. Patient has no acute complaints currently.
Data Reviewed
-
EKG: Tracing Personally Visualized and interpreted
Radiology: Report Reviewed by me
Labs: Labs Reviewed by me
Old Records: Reviewed
[2023-05-03] MEDS: LOVENOX 40 MG SC (18:17)
--- NOTE | 2023-05-03 18:53 | PTCARENOTE ---
patients daughter arrived, stated patient does well with soft foods at home. Administered small teaspoons water and patient did fine, did cough after receiving soft moist food , dtr was present. Will ask ST to see.
[2023-05-03] MEDS: RISPERDAL 0.5 MG PO (22:19)
[2023-05-03] MEDS: SINEQUAN 25 MG PO (22:19)
[2023-05-03] MEDS: NORVASC 2.5 MG PO (22:21)
[2023-05-03] MEDS: COREG 3.125 MG PO (22:23)
[2023-05-03] MEDS: NAMENDA 10 MG PO (22:23)
[2023-05-03] MEDS: LIPITOR 20 MG PO (22:23)
[2023-05-03] MEDS: XANAX 0.25 MG PO (22:26)
[2023-05-04] VITALS (8 sets, daily range): BP systolic 93–147; BP diastolic 65–92; PULSE 81–94; O2SAT 94; BMI 33.9
[2023-05-04 07:14] LABS: Hematocrit 36.7 % (37.0-47.0); Hemoglobin 11.9 g/dL (12.0-16.0); Mean Corp Hgb Conc. 32.4 g/dL (33.0-37.0); Mean Corpuscular Hgb 28.5 pg (27.0-31.0); Mean Platelet Volume 10.1 fL (7.4-10.4); Platelet Count 282 10^3/uL (130-400); Red Blood Cell Count 4.17 10^6/uL (4.20-5.40); Red Cell Dist. Width 15.2 % (11.5-14.5); White Blood Cell Count 9.8 10^3/uL (4.8-10.8)
[2023-05-04 07:35] LABS: Blood Urea Nitrogen 24 mg/dl (7-17); Calcium 8.5 mg/dl (8.4-10.2); Carbon Dioxide 33 mmol/L (22-30); Chloride 99 mmol/L (98-107); Estimated Creatinine Clearance 59 ml/min; Glucose 121 mg/dl (70-99); Magnesium 2.3 mg/dl (1.6-2.3); Potassium 3.9 mmol/L (3.5-5.1); Sodium 141 mmol/L (135-145); eGFR > 60.00
[2023-05-04] MEDS: LASIX 40 MG IV ×2 (07:54→15:54)
[2023-05-04] MEDS: XANAX 0.25 MG PO ×2 (07:55→20:31)
[2023-05-04] MEDS: LOW STRENGTH ASPIRIN 81 MG PO (07:55)
[2023-05-04] MEDS: NAMENDA 10 MG PO ×2 (07:55→20:31)
[2023-05-04] MEDS: NORVASC 2.5 MG PO ×2 (07:55→20:31)
[2023-05-04] MEDS: PROZAC 20 MG PO (07:55)
[2023-05-04] MEDS: ALDACTONE 12.5 MG PO (07:55)
[2023-05-04] MEDS: COREG 3.125 MG PO (07:56)
[2023-05-04 08:02] LABS: TSH Reflex To Free T4 1.25 uIU/ml (0.47-4.68)
--- NOTE | 2023-05-04 08:52 | W.PN.CARDCBS ---
Addendum entered and electronically signed by Tiesha Serrano DO 05/04/23 11:14:
I saw and examined the patient.
The Frame Stripper's note was reviewed and I agree with the note.
Comment: Seen and examined. Chart/labs reviewed. Offers no complaints. Denies SOB or chest pain.
GEN: Frail 87-year-old female on supplemental nasal cannula O2
HEENT: mmm
LUNGS: Bronchovesicular breath sounds with bilateral crackles
CV: Irreg, distant heart sounds, S1/S2, no murmur
ABD: soft, BS+, NT/ND
EXT: 1+ edema of B/L LE
Plan:
Presented with acute hypoxic respiratory distress, acute on chronic heart failure with preserved ejection fraction on arrival with proBNP 2630.
-Failed outpatient attempts to increase diuretics
- Continue IV Lasix 40 mg BID.�[On torsemide as an outpatient]
- Creatinine stable at 0.7.� Follow with diuresis.
-Weight down 13lbs if accurate. Down to 185lbs. Follow daily weights, I&O's.�
-Repeat echocardiogram planned today
-Remains in atrial fibrillation on review of telemetry.
-Continue coreg, will increase to 6.25mg BID as HRs are up somewhat this AM.
-Not anticoagulated by family wishes.
-BP stable.� Continue spironolactone, Coreg, and amlodipine.
-Patient is on palliative care as an outpatient
-DNR
Original Note:
Today's Communication / Plan
-
Continue IV lasix 80mg BID
Follow daily weights, I&Os, creat
Increase coreg
Echo pending
Impression / Plan
-
PCP: Dr. Allred
Supervisor [employer]: Dr. Serrano
Impression:
Acute on Chronic HFpEF
Permanent Atrial fibrillation
h/o sinus bradycardia and falls 08/2020
RBBB
HTN
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
Advanced dementia
COPD
h/o major depressive disorder
Hyperlipidemia
ECHO 09/09/20: EF 75%.� RV normal size and function.� Mild MR.� No or AI.� Trace TR.� PAP 29 mmHg.� This was compared to echo from October 2007, no significant interval changes seen.
Echo 12/17/21: EF 65 to 70%, concentric LVH, stage I DD, trace MR/TR, PAP 35 mmHg
Echo 05/04/2023: Study pending
Plan:
-Presented with worsening shortness of breath and hypoxia.In acute heart failure on arrival with proBNP 2630.
-Continue IV Lasix 40 mg BID. Creatinine stable at 0.7. Follow with diuresis.
-Weight down 13lbs if accurate. Down to 185lbs. Follow daily weights, I&O's.
-Remains in atrial fibrillation on review of telemetry.
-Continue coreg, will increase to 6.25mg BID as HRs are up somewhat this AM.
-Not anticoagulated by family wishes.
-Most recent echo 12/17/2021 with preserved ejection fraction. Repeat echo pending today.
-BP stable. Continue spironolactone, Coreg, and amlodipine.
-On 4 L NC. Wean as able.
HPI: June is a 89-year-old female with past medical history of chronic HFpEF, permanent A-fib, bradycardia and falls, RBBB, hypertension with prior hypertensive encephalopathy, dementia, COPD, and hyperlipidemia who presents to ER for evaluation
of worsening shortness of breath. Patient is unable to provide history given advanced dementia and history is obtained from medical record. She reportedly had an upper respiratory infection a few weeks ago and at this time, her daughter was giving
her more fluids to help get her through this viral illness. She continued to be hypoxic and came to ER for further evaluation. In ER, patient was found to have evidence of volume overload on exam with proBNP 2,630. She is hypoxic and on 4 L of
oxygen currently. She was admitted for further workup and evaluation. Cardiology consulted given acute heart failure exacerbation. Patient has no acute complaints currently.
Progress Note - Supervisor [employer]
Subjective
Date of Service: May 04, 2023
Offers no complaints. Denies SOB or chest pain.
Objective
Labs:
05/04/23 06:49
05/04/23 06:49
Labs
Hgb 11.9 g/dL (12.0-16.0) L 05/04/23 06:49
Hct 36.7 % (37.0-47.0) L 05/04/23 06:49
Plt Count 282 10^3/uL (130-400) 05/04/23 06:49
Sodium 141 mmol/L (135-145) 05/04/23 06:49
Potassium 3.9 mmol/L (3.5-5.1) 05/04/23 06:49
BUN 24 mg/dl (7-17) H 05/04/23 06:49
Creatinine 0.7 mg/dL (0.6-1.0) 05/04/23 06:49
Glucose 121 mg/dl (70-99) H 05/04/23 06:49
Troponins
05/03/23
12:15
Troponin I < 0.012
Vital Signs and I&O:
Vital Signs
Temp Pulse Resp BP Pulse Ox
99.5 F 95 20 135/76 95
05/04/23 03:00 05/04/23 03:00 05/04/23 03:00 05/04/23 03:00 05/04/23 03:00
Vital Signs
Temp Pulse Resp BP Pulse Ox
99.5 F 95 20 135/76 95
05/04/23 03:00 05/04/23 03:00 05/04/23 03:00 05/04/23 03:00 05/04/23 03:00
Intake & Output
05/02/23 05/03/23 05/04/23 05/05/23
06:59 06:59 06:59 06:59
Intake Total 480 / 480
Balance 480 / 480
Physical Exam
Physical Exam
GEN: No distress, awake, oriented to self. On supp O2
HEENT: supple, anicteric, mmm
LUNGS: crackles noted b/l
CV: Irreg, distant heart sounds, S1/S2, no murmur
ABD: soft, BS+, NT/ND
EXT: No cyanosis, clubbing. 1+ edema of B/L LE
NEURO: Gross non-focal
SKIN: Warm, pink, dry. No rash
--- NOTE | 2023-05-04 13:14 | W.PN.HOSP.TC ---
Today's Communication/Plan
-
Continue diuresis
Coreg increased for better rate control
Assessment / Plan
Assessment / Plan
Physical Exam
General: No Apparent Distress
HEENT: Anicteric, Moist mucous membranes and Oxygen (Nasal Cannula)
Respiratory: Crackles bilaterally
Cardiac: S1/S2 and Irregular Rhythm
GI: Soft and Non Tender. Positive bowel sounds.
Musculoskeletal: No Cyanosis and Other (+1 pitting edema bilateral lower extremities)
Skin: Warm and Dry
Neuro: Awake, Alert and Nonfocal/grossly intact
Assessment/Plan
Acute Hypoxic Respiratory Insufficiency secondary to Acute CHF
-Continue supplemental oxygen
Acute on Chronic Heart Failure with Preserved Ejection Fraction
-ProBNP was 2630
-Consulted Cardiology, recommendations appreciated
-Check Echocardiogram
-Per cardiology, patient failed outpatient attempts at increasing diuretics (was on Torsemide outpatient)
-Continue Lasix 40mg IV BID
-Continue spironolactone
-Monitor Is&Os and Daily Weights
Permanent Atrial Fibrillation
-Patient is not on anticoagulation as outpatient
-Continue Coreg for rate control
-Coreg increased to 6.25mg BID as heart rates were higher on 05/04/23 morning
Right Bundle Branch Block
Bradycardia and Falls
Essential Hypertension (with prior history of hypertensive encephalopathy)
-Continue Amlodipine and Coreg with hold parameters
Hyperlipidemia
-Continue atorvastatin
COPD
Advanced Dementia
-Continue memantine
Anxiety/Depression
-Continue alprazolam, doxepin, fluoxetine and risperidone as prior to admission
Dysphagia
-Continue Aspiration precautions - Sit up-right/out of bed for meals
-Continue soft solids
DVT proph: Lovenox
Code Status: Full Code
Anticipated Discharge: 24 - 48 hours
Subjective/Interval History
-
Date of Service: May 04, 2023
Patient was seen and examined. She was more interactive and conversant today, and denied any new complaints.
Objective Data
-
Labs:
Laboratory Results
05/04/23
06:49
WBC 9.8
Hgb 11.9 L
Hct 36.7 L
Plt Count 282
Sodium 141
Potassium 3.9
Chloride 99
Carbon Dioxide 33 H
BUN 24 H
Creatinine 0.7
Glucose 121 H
Calcium 8.5
Vital Signs:
Vital Signs
Temp Pulse Resp BP Pulse Ox
98.1 F 85 20 93/68 94
05/04/23 11:45 05/04/23 11:45 05/04/23 11:45 05/04/23 11:45 05/04/23 11:45
I&O
05/03/23 05/04/23 05/05/23
06:59 06:59 06:59
Intake Total 480 / 480
Balance 480 / 480
--- NOTE | 2023-05-04 15:00 | CM ---
met with patient and spoke with daughter/poadaughter rene middleton to confirm information.patient live with her daughter in house with ramp in front of house.her bed is on the first level and bath is on the second floor.daughter and other family
members assist patient taking a sponge bath.she is able to ambulate with a rolling walker to kitchen and bathroom. patient has palliative care through pcp.she also has visiting angels coming 4 times per week for 4 hrs each visit to assist with
bathing and grooming.i confirmed pcp and pharmacy.daughter states she has just returned home oxygen from [facility] since patient has not needed it for months.patient is adm with heart failure and is on 2 liters nc o2.patient has had home
care in past through [facility].patiwnt has also been to [facility] and [facility] facilities in past.daughter would like patient to return home with hcs through [facility] care.
Plan: home with hcs through [facility].
--- NOTE | 2023-05-04 15:07 | PTOTSP ---
Dysphagia Evaluation
Patient has a history of chronic dysphagia and has had multiple prior swallow studies with most recent 12/17/2021 with mild oral and mild-moderate pharyngeal dysphagia. Risk factors for dysphagia include advanced dementia, COPD, and heart failure.
Patient currently presents with signs concerning for at least moderate oral dysphagia and has a known history of pharyngeal dysphagia. Patient was unable to adequately chew or clear oral cavity of chopped solids and manual removal was required. No
signs concerning for aspiration observed.
Recommend:
1. IDDSI Level 4 (Puree), IDDSI Level 0 (Thin Liquids)
2. Medications - crushed in puree if medically cleared to do so
3. FULL SUPERVISION and ASSISTANCE to use strategies below
4. Strategies: small single sips/bites, slow rate, ensure patient clears oral cavity
5. Precautions: upright to 90 degrees, oral care after meals and at least 3-5x daily, remain upright after PO intake for at least 30 minutes
6. Will follow for dysphagia tx at the acute care level to determine if/when patient may be appropriate for minced/moist solids.
[2023-05-04] MEDS: LOVENOX 40 MG SC (15:54)
[2023-05-04] MEDS: XANAX PO (20:15)
[2023-05-04] MEDS: COREG PO (20:15)
[2023-05-04] MEDS: NAMENDA PO (20:15)
[2023-05-04] MEDS: NORVASC PO (20:15)
[2023-05-04] MEDS: COREG 6.25 MG PO (20:31)
[2023-05-04] MEDS: RISPERDAL 0.5 MG PO (22:48)
[2023-05-04] MEDS: SINEQUAN 25 MG PO (22:48)
[2023-05-04] MEDS: LIPITOR 20 MG PO (22:48)
[2023-05-05 03:21] VITALS: BP 110/66
[2023-05-05 04:46] VITALS: BMI 32.8
--- NOTE | 2023-05-05 06:37 | PTCARENOTE ---
Pt requiring 4L O2 during admission. House MOTION DESIGNER Reshma Peguero notified, order for O2 placed.
[2023-05-05 07:00] VITALS: BP 111/58
[2023-05-05] MEDS: NORVASC PO (08:41)
[2023-05-05] MEDS: ALDACTONE 12.5 MG PO (08:41)
[2023-05-05] MEDS: XANAX 0.25 MG PO ×2 (08:41→21:51)
[2023-05-05] MEDS: NAMENDA 10 MG PO ×2 (08:42→21:50)
[2023-05-05] MEDS: LOW STRENGTH ASPIRIN 81 MG PO (08:42)
[2023-05-05] MEDS: COREG 6.25 MG PO ×2 (08:42→21:49)
[2023-05-05] MEDS: PROZAC 20 MG PO (08:42)
[2023-05-05] MEDS: LASIX 40 MG IV ×2 (08:42→16:31)
[2023-05-05 08:56] LABS: Blood Urea Nitrogen 24 mg/dl (7-17); Calcium 8.7 mg/dl (8.4-10.2); Carbon Dioxide 33 mmol/L (22-30); Chloride 95 mmol/L (98-107); Estimated Creatinine Clearance 51 ml/min; Glucose 104 mg/dl (70-99); Potassium 4.1 mmol/L (3.5-5.1); Sodium 138 mmol/L (135-145); eGFR > 60.00
--- NOTE | 2023-05-05 09:45 | W.PN.CARDCBS ---
Addendum entered and electronically signed by Rickey Reed MD 05/05/23 16:24:
I saw and examined the patient.
The Miner Placer's note was reviewed and I agree with the note.
Comment:
GEN: No distress, awake
HEENT: supple, anicteric, mmm
LUNGS: scatt rhonchi
CV: irreg, S1/S2, 1/6 syst LSB, no gallop
ABD: soft, BS+, NT/ND
EXT: No edema
NEURO: Gross non-focal
SKIN: No rash
Plan:
She is diuresing. Will continue IV Lasix for another 24 hours.
Continue carvedilol. Ventricular rates are improved on the higher dose of Coreg 6.25 twice daily.
Patient not anticoagulated per family wishes.
Addendum entered and electronically signed by Tamar Reeder PA-C 05/05/23 15:41:
Called and spoke with patient's daughter on the phone for 8 minutes and 19 seconds. Updated daughter on patient's plan of care. Discussed that we have been diuresing and her weight has been coming down, but oxygen requirements remain elevated.
Explained that we are going to continue diuresing with IV lasix for now and will follow her weights and renal function along with her respiratory status. She requested PT work with patient on moving around and walking as much as able and getting out
of bed to the chair. All questions were answered and she requested a call back in the next day or so for another update.
Original Note:
Today's Communication / Plan
-
Continue diuresis
Continue higher dose coreg 6.25mg BID
Wean O2 as able
Impression / Plan
-
PCP: Dr. Allred
Blast Furnace Supervisor: Dr. Serrano
Impression:
Acute on Chronic HFpEF
Permanent Atrial fibrillation
h/o sinus bradycardia and falls 08/2020
RBBB
HTN
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
Advanced dementia
COPD
h/o major depressive disorder
Hyperlipidemia
ECHO 09/09/20: EF 75%.� RV normal size and function.� Mild MR.� No or AI.� Trace TR.� PAP 29 mmHg.� This was compared to echo from October 2007, no significant interval changes seen.
Echo 12/17/21: EF 65 to 70%, concentric LVH, stage I DD, trace MR/TR, PAP 35 mmHg
Echo 05/04/2023: EF 55 to 60%, mild concentric LVH, trace MR, trace AR, mild TR, estimated PAP 29 mmHg, fat pad present, trivial to small pericardial effusion without evidence of hemodynamic compromise, fibrinous stranding noted.
Plan:
-Presented with worsening shortness of breath and hypoxia. In acute heart failure on arrival with proBNP 2630.
-Continue IV Lasix 40 mg BID. Creatinine stable at 0.8. Follow with diuresis.
-Weight down 19lbs this admission, down to 179lbs on 05/05. Follow daily weights, I&O's.
-Remains in atrial fibrillation. Continue coreg 6.25mg BID. Dose increased 05/04 for better rate control.
-Not anticoagulated by family wishes.
-Echo 05/04 with preserved EF and stable trivial/mild valvular disease as noted above.
-BP stable. Continue spironolactone, Coreg, and amlodipine.
-On 4 L NC. Wean as able.
-Follow up arranged
HPI: June is a 89-year-old female with past medical history of chronic HFpEF, permanent A-fib, bradycardia and falls, RBBB, hypertension with prior hypertensive encephalopathy, dementia, COPD, and hyperlipidemia who presents to ER for evaluation
of worsening shortness of breath. Patient is unable to provide history given advanced dementia and history is obtained from medical record. She reportedly had an upper respiratory infection a few weeks ago and at this time, her daughter was giving
her more fluids to help get her through this viral illness. She continued to be hypoxic and came to ER for further evaluation. In ER, patient was found to have evidence of volume overload on exam with proBNP 2,630. She is hypoxic and on 4 L of
oxygen currently. She was admitted for further workup and evaluation. Cardiology consulted given acute heart failure exacerbation. Patient has no acute complaints currently.
Progress Note - Blast Furnace Supervisor
Subjective
Date of Service: May 05, 2023
Resting comfortably without complaints.
Objective
Labs:
05/04/23 06:49
05/05/23 07:20
Labs
Hgb 11.9 g/dL (12.0-16.0) L 05/04/23 06:49
Hct 36.7 % (37.0-47.0) L 05/04/23 06:49
Plt Count 282 10^3/uL (130-400) 05/04/23 06:49
Sodium 138 mmol/L (135-145) 05/05/23 07:20
Potassium 4.1 mmol/L (3.5-5.1) 05/05/23 07:20
BUN 24 mg/dl (7-17) H 05/05/23 07:20
Creatinine 0.8 mg/dL (0.6-1.0) 05/05/23 07:20
Glucose 104 mg/dl (70-99) H 05/05/23 07:20
Troponins
05/03/23
12:15
Troponin I < 0.012
Vital Signs and I&O:
Vital Signs
Temp Pulse Resp BP Pulse Ox
99.5 F 91 20 111/58 92
05/05/23 03:21 05/05/23 03:21 05/05/23 03:21 05/05/23 08:41 05/05/23 09:29
Vital Signs
Temp Pulse Resp BP Pulse Ox
99.5 F 91 20 111/58 92
05/05/23 03:21 05/05/23 03:21 05/05/23 03:21 05/05/23 08:41 05/05/23 09:29
Intake & Output
05/03/23 05/04/23 05/05/23 05/06/23
06:59 06:59 06:59 06:59
Intake Total 480 / 480 960 / 960
Output Total 950 / 950
Balance 480 / 480
Physical Exam
Physical Exam
GEN: No distress, awake, oriented to self. On supp O2
HEENT: supple, anicteric, mmm
LUNGS: crackles noted b/l
CV: Irreg, distant heart sounds, S1/S2, no murmur
ABD: soft, BS+, NT/ND
EXT: No cyanosis, clubbing. Trace edema of B/L LE
NEURO: Gross non-focal
SKIN: Warm, pink, dry. No rash
[2023-05-05 10:41] VITALS: BMI 32.8
[2023-05-05 11:00] VITALS: BP 119/80
--- NOTE | 2023-05-05 11:01 | PN.CDI ---
CDI
- -
CDI:
Physician Documentation Request
Admit Date: 05/03/23 15:39
Dear Doctor Brittany,
Please review the following and provide your response in the progress notes.
Clinical Indicators:
EMS:
#' the patient was given 4-6L/min oxygen which increased
#...the measured pulse oximetry to 95%.'
ER, 05/03
#Pneumonia, CHF (congestive heart failure),
#...Acute and chronic respiratory failure ([id number])
#Respiratory: Reports cough and trouble breathing
#RESPIRATORY: Regular respirations, mildly labored, lungs with crackles in bases,
#...coarse junky cough. Pulse ox 88% RA, 96% on 4L NC
H+P, 05/03
#Acute Hypoxic Respiratory Insufficiency secondary to Acute CHF
#...-Continue supplemental oxygen
#Respiratory: Rhonchi (Anteriorly) and Decreased Breath Sounds (Bilateral Bases), Crackles
Selected Entries
05/03/23
19:30 05/03/23
23:00 05/03/23
20:15
Nasal Cannula flow liters per minute 5 5 4
Recognized standard criteria for respiratory failure includes:
(Source: [facility] Hospitalist Jan 2013)
Symptoms:
�Tachypnea, SOB, dyspnea
�Pallor or cyanosis
�Anxiety or restlessness
�Use of accessory muscles
�Retractions (grunting in newborns)
�Unable to speak in complete sentences
Supplemental O2 requirement of 40% (5LPM) or more Intubation is not required
Based on the above information and the recognized standard for respiratory failure please verify this diagnoses is still accurate and reflective of the patient�s condition to ensure quality of the medical record.
Please clarify in the Progress Notes:
Respiratory failure is/was present and is a clinical diagnosis based on (please include this additional support in the medical record)
Respiratory failure, POA, now resolved
After study respiratory failure has been ruled out
Acute hypoxic respiratory insufficiency, only
Other
Use of terms such as suspected, likely, concern for, or probable (associated with a specific diagnosis that is being evaluated, monitored, or treated as if it exists) are acceptable and can be coded in the inpatient setting, when documented at the
time of discharge.
Thank you,
Lavonne Gramajo RN BSN CCDS
CDI Specialist
please contact via tiger text
Please use your independent medical judgment in providing your response.
--- NOTE | 2023-05-05 13:28 | W.PN.HOSP.TC ---
Today's Communication/Plan
-
Continue IV diuresis
Spoke with patient's daughter today
Assessment / Plan
Assessment / Plan
Physical Exam
General: No Apparent Distress
HEENT: Anicteric, Moist mucous membranes and Oxygen (Nasal Cannula)
Respiratory: Crackles bilaterally
Cardiac: S1/S2 and Irregular Rhythm
GI: Soft and Non Tender. Positive bowel sounds.
Musculoskeletal: No Cyanosis and Other (+1 pitting edema bilateral lower extremities)
Skin: Warm and Dry
Neuro: Awake, Alert and Nonfocal/grossly intact

Echocardiogram as per linen checker's report:
'CONCLUSIONS
Normal left ventricular size and systolic function. Mild concentric left
ventricular hypertrophy. No regional wall motion abnormalities are seen. LV
ejection fraction is 55-60% by visual assessment. Diastolic function
indeterminate due to atrial fibrillation.
Increased right ventricular wall thickness. Normal right ventricular systolic
function.
Structurally normal mitral valve. Mitral annular calcification. Mitral valve
opens normally. Trace mitral regurgitation.
Trileaflet aortic valve. Thickened aortic valve with normal leaflet excursion.
Trace aortic regurgitation.
Tricuspid valve opens normally. Mild tricuspid regurgitation. Estimated
pulmonary artery pressure of 29 mmHg, assuming a right atrial pressure of 3
mmHg.
Fat pad present. Trivial to small pericardial effusion likely without
echocardiographic evidence of hemodynamic compromise. Some fibrinous stranding
noted.
Compared to prior study 12/17/2021 no significant change noted.'
Assessment/Plan
Acute Hypoxic Respiratory Failure secondary to Acute Congestive Heart Failure
-Continue supplemental oxygen
Acute on Chronic Heart Failure with Preserved Ejection Fraction
-ProBNP was 2630
-Consulted Cardiology, recommendations appreciated
-Echocardiogram results are above
-Per cardiology, patient failed outpatient attempts at increasing diuretics (was on Torsemide outpatient)
-Continue Lasix 40mg IV BID
-Continue spironolactone
-Monitor Is&Os and Daily Weights
Permanent Atrial Fibrillation
-Patient is not on anticoagulation as outpatient
-Continue Coreg for rate control
-Coreg increased to 6.25mg BID as heart rates were higher on 05/04/23 morning
Right Bundle Branch Block
Bradycardia and Falls
Essential Hypertension (with prior history of hypertensive encephalopathy)
-Continue Amlodipine and Coreg with hold parameters
Hyperlipidemia
-Continue atorvastatin
COPD
Advanced Dementia
-Continue memantine
Anxiety/Depression
-Continue alprazolam, doxepin, fluoxetine and risperidone as prior to admission
Dysphagia
-Continue Aspiration precautions - Sit up-right/out of bed for meals
-Continue soft solids
DVT proph: Lovenox
Code Status: Full Code
05/05/23: I spoke with patient's daughter Roshan, all questions and concerns were answered to satisfaction. Roshan would like patient to get up out of bed with physical therapy and for physical therapy to try harder to do this. She would like to be
updated again before discharge.
Anticipated Discharge: > 48 hours
Subjective/Interval History
-
Date of Service: May 05, 2023
Patient was seen and examined. She reported no new symptoms.
Objective Data
-
Labs:
Laboratory Results
05/05/23
07:20
Sodium 138
Potassium 4.1
Chloride 95 L
Carbon Dioxide 33 H
BUN 24 H
Creatinine 0.8
Glucose 104 H
Calcium 8.7
Vital Signs:
Vital Signs
Temp Pulse Resp BP Pulse Ox
97.9 F 100 18 119/80 92
05/05/23 11:00 05/05/23 11:00 05/05/23 11:00 05/05/23 11:00 05/05/23 11:00
I&O
05/04/23 05/05/23 05/06/23
06:59 06:59 06:59
Intake Total 480 / 480 960 / 960
Output Total 950 / 950
Balance 480 / 480 10 / 10
[2023-05-05 15:00] VITALS: BP 93/78
--- NOTE | 2023-05-05 16:12 | CM ---
Plan: home with [facility], referral sent.
OT recommending skilled rehab.
Attempted to contact daughter today without success.
Possible oxygen needs.
Plan: home with [facility], possible home oxygen. Watch for possible skilled needs.
[2023-05-05] MEDS: LOVENOX 40 MG SC (17:15)
[2023-05-05 19:56] VITALS: BP 137/87
[2023-05-05] MEDS: NORVASC 2.5 MG PO (21:50)
[2023-05-05] MEDS: SINEQUAN 25 MG PO (21:51)
[2023-05-05] MEDS: RISPERDAL 0.5 MG PO (21:51)
[2023-05-05] MEDS: LIPITOR 20 MG PO (21:51)
[2023-05-05 23:43] VITALS: BP 115/72
[2023-05-06 03:32] VITALS: BP 120/63
[2023-05-06 06:00] VITALS: BMI 33.4
--- NOTE | 2023-05-06 07:07 | W.PN.HOSP.TC ---
Today's Communication/Plan
-
cont lasix diuresis
wean O2 supplementation as tolerated
PT/OT
daily weights I/O
Assessment / Plan
Assessment / Plan
Physical Exam
General: No Apparent Distress
HEENT: Anicteric, Moist mucous membranes and Oxygen (Nasal Cannula)
Respiratory: Crackles bilaterally
Cardiac: S1/S2 and Irregular Rhythm
GI: Soft and Non Tender. Positive bowel sounds.
Musculoskeletal: No Cyanosis and Other (+1 pitting edema bilateral lower extremities)
Skin: Warm and Dry
Neuro: Awake, Alert and Nonfocal/grossly intact

ECHO appreciated
Normal left ventricular size and systolic function. Mild concentric left
ventricular hypertrophy. No regional wall motion abnormalities are seen. LV
ejection fraction is 55-60% by visual assessment. Diastolic function
indeterminate due to atrial fibrillation.
Increased right ventricular wall thickness. Normal right ventricular systolic
function.
Structurally normal mitral valve. Mitral annular calcification. Mitral valve
opens normally. Trace mitral regurgitation.
Trileaflet aortic valve. Thickened aortic valve with normal leaflet excursion.
Trace aortic regurgitation.
Tricuspid valve opens normally. Mild tricuspid regurgitation. Estimated
pulmonary artery pressure of 29 mmHg, assuming a right atrial pressure of 3
mmHg.
Fat pad present. Trivial to small pericardial effusion likely without
echocardiographic evidence of hemodynamic compromise. Some fibrinous stranding
noted.
Compared to prior study 12/17/2021 no significant change noted
Assessment/Plan
Acute Hypoxic Respiratory Failure secondary to Acute Congestive Heart Failure
-Continue supplemental oxygen
Acute on Chronic Heart Failure with Preserved Ejection Fraction
-ProBNP was 2630
-Consulted Cardiology, recommendations appreciated
-Echocardiogram results as above
-Per cardiology, patient failed outpatient attempts at increasing diuretics (was on Torsemide outpatient)
-Continue Lasix 40mg IV BID
-Continue spironolactone
-Monitor Is&Os and Daily Weights
Permanent Atrial Fibrillation
-Patient is not on anticoagulation as outpatient
-Continue Coreg for rate control
-Coreg increased to 6.25mg BID as heart rates were higher on 05/04/23 morning
Right Bundle Branch Block
Bradycardia and Falls
Essential Hypertension (with prior history of hypertensive encephalopathy)
-Continue Amlodipine and Coreg with hold parameters
Hyperlipidemia
-Continue atorvastatin
COPD
Advanced Dementia
-Continue memantine
Anxiety/Depression
-Continue alprazolam, doxepin, fluoxetine and risperidone as prior to admission
Dysphagia
-Continue Aspiration precautions - Sit up-right/out of bed for meals
-Continue soft solids
DVT proph: Lovenox
Code Status: Full Code
discussed with patient's daughter Roshan
I spent a total of 50 minutes with the patient or on the floor. More than 50% of this time involved counseling and coordination of care.
Anticipated Discharge: 24 - 48 hours
Subjective/Interval History
-
Date of Service: May 06, 2023
No acute distress appears comfortable at this time. Hard of hearing. Limited interview due to lethargy but arousable. Daughter Roshan present during evaluation
Objective Data
-
Labs:
Laboratory Results
05/06/23
06:49
Sodium Pending
Potassium Pending
Chloride Pending
Carbon Dioxide Pending
BUN Pending
Creatinine Pending
Glucose Pending
Calcium Pending
Vital Signs:
Vital Signs
Temp Pulse Resp BP Pulse Ox
99.5 F 95 18 120/63 92
05/06/23 03:32 05/06/23 03:32 05/06/23 03:32 05/06/23 03:32 05/06/23 03:32
I&O
05/05/23 05/06/23 05/07/23
06:59 06:59 06:59
Intake Total 960 / 960 720 / 720
Output Total 950 / 950
Balance 10 720 / 720
[2023-05-06 07:55] VITALS: BP 112/65
[2023-05-06 08:13] LABS: Blood Urea Nitrogen 27 mg/dl (7-17); Calcium 8.7 mg/dl (8.4-10.2); Carbon Dioxide 34 mmol/L (22-30); Chloride 94 mmol/L (98-107); Estimated Creatinine Clearance 51 ml/min; Glucose 98 mg/dl (70-99); Potassium 3.8 mmol/L (3.5-5.1); Sodium 138 mmol/L (135-145); eGFR > 60.00
--- NOTE | 2023-05-06 09:14 | W.PN.CARDCBS ---
Addendum entered and electronically signed by Jomar Echeverria MD 05/06/23 11:33:
Patient seen, interviewed and examined by me.
Well-appearing, no acute distress
Oriented X 1 (self)
Irregular rate and rhythm with normal S1 and S2, no S3 no S4. There is a grade 1/6 apical holosystolic murmur and no rubs. PMI is normally placed.
Poor inspiratory effort otherwise lungs are clear without wheezes rales or rhonchi.
Abdomen soft nontender nondistended with normoactive bowel sounds
Extremities show trace pretibial edema bilaterally no clubbing or cyanosis.
Agree with advanced practice professionals assessment and plan as noted below.
Continue diuresis for decompensated heart failure with preserved ejection fraction
Lasix 40 mg IV twice daily (weight has fluctuated somewhat but overall down from admission, Creat stable)
Original Note:
Today's Communication / Plan
-
Continue diuresis for now
Wean O2 as able.
PT/OT
Impression / Plan
-
PCP: Dr. Allred
Software Development Engineer: Dr. Serrano
Impression:
Acute on Chronic HFpEF
Permanent Atrial fibrillation
h/o sinus bradycardia and falls 08/2020
RBBB
HTN
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
Advanced dementia
COPD
h/o major depressive disorder
Hyperlipidemia
ECHO 09/09/20: EF 75%.� RV normal size and function.� Mild MR.� No or AI.� Trace TR.� PAP 29 mmHg.� This was compared to echo from October 2007, no significant interval changes seen.
Echo 12/17/21: EF 65 to 70%, concentric LVH, stage I DD, trace MR/TR, PAP 35 mmHg
Echo 05/04/2023: EF 55 to 60%, mild concentric LVH, trace MR, trace AR, mild TR, estimated PAP 29 mmHg, fat pad present, trivial to small pericardial effusion without evidence of hemodynamic compromise, fibrinous stranding noted.
Plan:
-Presented with worsening shortness of breath and hypoxia. In acute heart failure on arrival with proBNP 2630.
-Continue IV Lasix 40 mg BID. Creatinine stable at 0.8. Follow with diuresis, may be close to transitioning to PO.
-Weight down as much as 19lbs this admission, down to 179lbs on 05/05. Follow daily weights, I&O's. Weight 182 lbs 05/06, unclear accuracy as they are bed scale weights.
-Remains in atrial fibrillation. Continue coreg 6.25mg BID. Dose increased 05/04 for better rate control.
-Not anticoagulated by family wishes.
-Echo 05/04 with preserved EF and stable trivial/mild valvular disease as noted above.
-BP stable. Continue spironolactone, Coreg, and amlodipine.
-On 4 L NC. Wean as able.
-PT/OT.
-Called and spoke with daughter on 05/05 to update. She requested another call with update in another day or so.
-Follow up arranged.
HPI: June is a 89-year-old female with past medical history of chronic HFpEF, permanent A-fib, bradycardia and falls, RBBB, hypertension with prior hypertensive encephalopathy, dementia, COPD, and hyperlipidemia who presents to ER for evaluation
of worsening shortness of breath. Patient is unable to provide history given advanced dementia and history is obtained from medical record. She reportedly had an upper respiratory infection a few weeks ago and at this time, her daughter was giving
her more fluids to help get her through this viral illness. She continued to be hypoxic and came to ER for further evaluation. In ER, patient was found to have evidence of volume overload on exam with proBNP 2,630. She is hypoxic and on 4 L of
oxygen currently. She was admitted for further workup and evaluation. Cardiology consulted given acute heart failure exacerbation. Patient has no acute complaints currently.
Progress Note - Software Development Engineer
Subjective
Date of Service: May 06, 2023
Offers no complaints.
Objective
Labs:
05/04/23 06:49
05/06/23 06:49
Labs
Hgb 11.9 g/dL (12.0-16.0) L 05/04/23 06:49
Hct 36.7 % (37.0-47.0) L 05/04/23 06:49
Plt Count 282 10^3/uL (130-400) 05/04/23 06:49
Sodium 138 mmol/L (135-145) 05/06/23 06:49
Potassium 3.8 mmol/L (3.5-5.1) 05/06/23 06:49
BUN 27 mg/dl (7-17) H 05/06/23 06:49
Creatinine 0.8 mg/dL (0.6-1.0) 05/06/23 06:49
Glucose 98 mg/dl (70-99) 05/06/23 06:49
Troponins
05/03/23
12:15
Troponin I < 0.012
Vital Signs and I&O:
Vital Signs
Temp Pulse Resp BP Pulse Ox
98.2 F 96 18 112/65 93
05/06/23 07:55 05/06/23 07:55 05/06/23 07:55 05/06/23 07:55 05/06/23 07:55
Vital Signs
Temp Pulse Resp BP Pulse Ox
98.2 F 96 18 112/65 93
05/06/23 07:55 05/06/23 07:55 05/06/23 07:55 05/06/23 07:55 05/06/23 07:55
Intake & Output
05/04/23 05/05/23 05/06/23 05/07/23
06:59 06:59 06:59 06:59
Intake Total 480 / 480 960 / 960 720 / 720
Output Total 950 / 950
Balance 480 / 480 10 / 10 720 / 720
Physical Exam
Physical Exam
GEN: No distress, awake, oriented to self. On supp O2
HEENT: supple, anicteric, mmm
LUNGS: crackles noted b/l
CV: Irreg, distant heart sounds, S1/S2, no murmur
ABD: soft, BS+, NT/ND
EXT: No cyanosis, clubbing. Trace edema of B/L LE
NEURO: Gross non-focal
SKIN: Warm, pink, dry. No rash
[2023-05-06] MEDS: ALDACTONE 12.5 MG PO (09:39)
[2023-05-06] MEDS: COREG 6.25 MG PO ×2 (09:40→19:46)
[2023-05-06] MEDS: XANAX 0.25 MG PO ×2 (09:40→19:55)
[2023-05-06] MEDS: PROZAC 20 MG PO (09:40)
[2023-05-06] MEDS: NAMENDA 10 MG PO ×2 (09:40→19:47)
[2023-05-06] MEDS: LOW STRENGTH ASPIRIN 81 MG PO (09:40)
[2023-05-06] MEDS: LASIX 40 MG IV ×2 (09:40→16:23)
[2023-05-06] MEDS: NORVASC PO (09:41)
[2023-05-06 11:55] VITALS: BP 112/68
[2023-05-06 15:55] VITALS: BP 117/63
[2023-05-06] MEDS: LOVENOX 40 MG SC (18:02)
[2023-05-06 19:00] VITALS: BP 127/70
[2023-05-06] MEDS: NORVASC 2.5 MG PO (19:47)
[2023-05-06] MEDS: LIPITOR 20 MG PO (19:48)
[2023-05-06] MEDS: RISPERDAL 0.5 MG PO (19:48)
[2023-05-06] MEDS: SINEQUAN 25 MG PO (19:49)
[2023-05-06 23:00] VITALS: BP 109/63
[2023-05-07 03:00] VITALS: BP 109/67
[2023-05-07 07:14] LABS: Hematocrit 38.2 % (37.0-47.0); Hemoglobin 12.2 g/dL (12.0-16.0); Mean Corp Hgb Conc. 31.9 g/dL (33.0-37.0); Mean Corpuscular Hgb 27.7 pg (27.0-31.0); Mean Corpuscular Volume 86.6 fL (81.0-99.0); Platelet Count 309 10^3/uL (130-400); Red Blood Cell Count 4.41 10^6/uL (4.20-5.40); Red Cell Dist. Width 14.4 % (11.5-14.5); White Blood Cell Count 9.9 10^3/uL (4.8-10.8)
--- NOTE | 2023-05-07 07:26 | W.PN.HOSP.TC ---
Today's Communication/Plan
-
cont lasix diuresis as per cardio
wean O2 supplementation as tolerated
PT/OT
daily weights I/O
check CT chest
Assessment / Plan
Assessment / Plan
Physical Exam
General: No Apparent Distress
HEENT: Anicteric, Moist mucous membranes and Oxygen (Nasal Cannula) Hard of Hearing
Respiratory: Crackles bilaterally
Cardiac: S1/S2 and Irregular Rhythm
GI: Soft and Non Tender. Positive bowel sounds.
Musculoskeletal: No Cyanosis and Other (+1 pitting edema bilateral lower extremities)
Skin: Warm and Dry
Neuro: Awake, Alert, Conversant

ECHO appreciated
Normal left ventricular size and systolic function. Mild concentric left
ventricular hypertrophy. No regional wall motion abnormalities are seen. LV
ejection fraction is 55-60% by visual assessment. Diastolic function
indeterminate due to atrial fibrillation.
Increased right ventricular wall thickness. Normal right ventricular systolic
function.
Structurally normal mitral valve. Mitral annular calcification. Mitral valve
opens normally. Trace mitral regurgitation.
Trileaflet aortic valve. Thickened aortic valve with normal leaflet excursion.
Trace aortic regurgitation.
Tricuspid valve opens normally. Mild tricuspid regurgitation. Estimated
pulmonary artery pressure of 29 mmHg, assuming a right atrial pressure of 3
mmHg.
Fat pad present. Trivial to small pericardial effusion likely without
echocardiographic evidence of hemodynamic compromise. Some fibrinous stranding
noted.
Compared to prior study 12/17/2021 no significant change noted
Assessment/Plan
Acute Hypoxic Respiratory Failure secondary to Acute Congestive Heart Failure
-Continue supplemental oxygen
-given persistent oxygen dependence and associate sinus tachycardia possible atelectasis vs pna as noted on cxr (unlikely pna given afebrile no leukocytosis), checking CT chest
Acute on Chronic Heart Failure with Preserved Ejection Fraction
-ProBNP was 2630
-Consulted Cardiology, recommendations appreciated
-Echocardiogram results as above
-Per cardiology, patient failed outpatient attempts at increasing diuretics (was on Torsemide outpatient)
-Continue Lasix 40mg IV BID
-Continue spironolactone
-Monitor Is&Os and Daily Weights
Permanent Atrial Fibrillation
-Patient is not on anticoagulation as outpatient
-Continue Coreg for rate control
-Coreg increased to 6.25mg BID as heart rates were higher on 05/04/23 morning
Right Bundle Branch Block
Bradycardia and Falls
Essential Hypertension (with prior history of hypertensive encephalopathy)
-Continue Amlodipine and Coreg with hold parameters
Hyperlipidemia
-Continue atorvastatin
COPD
Advanced Dementia
-Continue memantine
Anxiety/Depression
-Continue alprazolam, doxepin, fluoxetine and risperidone as prior to admission
Dysphagia
-Continue Aspiration precautions - Sit up-right/out of bed for meals
-Continue soft solids
DVT proph: Lovenox
Code Status: Full Code
discussed with patient's daughter Roshan
I spent a total of 50 minutes with the patient or on the floor. More than 50% of this time involved counseling and coordination of care.
Anticipated Discharge: 24 - 48 hours
Subjective/Interval History
-
Date of Service: May 07, 2023
No acute distress. More awake conversive today compared to yesterday. remains oxygen dependent. Denies pain. Daughter Roshan present during evaluation
Objective Data
-
Labs:
Laboratory Results
05/07/23
06:56
WBC 9.9
Hgb 12.2
Hct 38.2
Plt Count 309
Sodium Pending
Potassium Pending
Chloride Pending
Carbon Dioxide Pending
BUN Pending
Creatinine Pending
Glucose Pending
Calcium Pending
Vital Signs:
Vital Signs
Temp Pulse Resp BP Pulse Ox
97.5 F 81 20 109/67 94
05/07/23 03:00 05/07/23 03:00 05/07/23 03:00 05/07/23 03:00 05/07/23 03:00
I&O
05/06/23 05/07/23 05/08/23
06:59 06:59 06:59
Intake Total 720 / 720 480 / 480
Balance 720 / 720 480 / 480
[2023-05-07 07:28] LABS: Blood Urea Nitrogen 31 mg/dl (7-17); Calcium 8.8 mg/dl (8.4-10.2); Carbon Dioxide 36 mmol/L (22-30); Chloride 95 mmol/L (98-107); Estimated Creatinine Clearance 46 ml/min; Glucose 107 mg/dl (70-99); Magnesium 2.4 mg/dl (1.6-2.3); Phosphorus 4.6 mg/dl (2.5-4.5); Potassium 3.8 mmol/L (3.5-5.1); Sodium 140 mmol/L (135-145); eGFR > 60.00
[2023-05-07 07:32] VITALS: BP 106/68
[2023-05-07] MEDS: LOW STRENGTH ASPIRIN 81 MG PO (07:41)
[2023-05-07] MEDS: COREG 6.25 MG PO (07:41)
[2023-05-07] MEDS: ALDACTONE 12.5 MG PO (07:41)
[2023-05-07] MEDS: NORVASC 2.5 MG PO (07:41)
[2023-05-07] MEDS: NAMENDA 10 MG PO ×2 (07:42→21:35)
[2023-05-07] MEDS: LASIX 40 MG IV ×2 (07:42→15:42)
[2023-05-07] MEDS: PROZAC 20 MG PO (07:42)
[2023-05-07] MEDS: XANAX 0.25 MG PO ×2 (07:43→17:38)
--- NOTE | 2023-05-07 10:34 | W.PN.CARDCBS ---
Today's Communication / Plan
-
Continue attempts at diuresis
Impression / Plan
-
PCP: Dr. Allred
Website Developer: Dr. Serrano
Impression:
Acute on Chronic HFpEF (on arrival with proBNP 2630 with no evidence to suggest decompensated heart failure. There is possibility of subsegmental atelectasis or early pneumonia.)
Advanced dementia
Permanent Atrial fibrillation
h/o sinus bradycardia and falls 08/2020
RBBB
HTN
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
COPD
h/o major depressive disorder
Hyperlipidemia
ECHO 09/09/20: EF 75%.� RV normal size and function.� Mild MR.� No or AI.� Trace TR.� PAP 29 mmHg.� This was compared to echo from October 2007, no significant interval changes seen.
Echo 12/17/21: EF 65 to 70%, concentric LVH, stage I DD, trace MR/TR, PAP 35 mmHg
Echo 05/04/2023: EF 55 to 60%, mild concentric LVH, trace MR, trace AR, mild TR, estimated PAP 29 mmHg, fat pad present, trivial to small pericardial effusion without evidence of hemodynamic compromise, fibrinous stranding noted.
Plan:
We have been diuresing with Lasix 40 mg IV twice daily (was on torsemide 20 mg daily as an outpatient).
Weight is up 3 pounds overnight? Down 2 pounds from the day prior and down 19 pounds from the day prior to that? Uncertain of accuracy of weights
Fluid balance is +2.6 L. Uncertain of accuracy of fluid balance
Creatinine is stable at 0.9
Continue IV Lasix 40 mg BID for now. May be close to transitioning to PO (will need to assess by exam as wt and fluid bal both seem inacurate).
-CXR with possibility of subsegmental atelectasis or early pneumonia which may need further evaluation by primary service.
-Remains in atrial fibrillation. Continue coreg 6.25mg BID. Dose increased 05/04 for better rate control.
-Not anticoagulated by family wishes.
-Echo 05/04 with preserved EF and stable trivial/mild valvular disease as noted above.
-BP stable. Continue spironolactone, Coreg, and amlodipine.
-On O2 NC. Wean as able.
-PT/OT.
-Follow up arranged.
HPI: June is a 89-year-old female with past medical history of chronic HFpEF, permanent A-fib, bradycardia and falls, RBBB, hypertension with prior hypertensive encephalopathy, dementia, COPD, and hyperlipidemia who presents to ER for evaluation
of worsening shortness of breath. Patient is unable to provide history given advanced dementia and history is obtained from medical record. She reportedly had an upper respiratory infection a few weeks ago and at this time, her daughter was giving
her more fluids to help get her through this viral illness. She continued to be hypoxic and came to ER for further evaluation. In ER, patient was found to have evidence of volume overload on exam with proBNP 2,630. She is hypoxic and on 4 L of
oxygen currently. She was admitted for further workup and evaluation. Cardiology consulted given acute heart failure exacerbation. Patient has no acute complaints currently.
Progress Note - Website Developer
Subjective
Date of Service: May 07, 2023
She describes ' feeling bad' but is unable to elaborate. She denies chest pain and shortness of breath. She tells me she feels cold at times but would not allow me to place extra blanket on her bed.
Total Time Spent with Patient (in minutes): 35
Objective
Labs:
05/07/23 06:56
05/07/23 06:56
Labs
Hgb 12.2 g/dL (12.0-16.0) 05/07/23 06:56
Hct 38.2 % (37.0-47.0) 05/07/23 06:56
Plt Count 309 10^3/uL (130-400) 05/07/23 06:56
Sodium 140 mmol/L (135-145) 05/07/23 06:56
Potassium 3.8 mmol/L (3.5-5.1) 05/07/23 06:56
BUN 31 mg/dl (7-17) H 05/07/23 06:56
Creatinine 0.9 mg/dL (0.6-1.0) 05/07/23 06:56
Glucose 107 mg/dl (70-99) H 05/07/23 06:56
Vital Signs and I&O:
Vital Signs
Temp Pulse Resp BP Pulse Ox
97.9 F 81 18 106/68 93
05/07/23 07:32 05/07/23 07:32 05/07/23 07:32 05/07/23 07:32 05/07/23 08:00
Vital Signs
Temp Pulse Resp BP Pulse Ox
97.9 F 81 18 106/68 93
05/07/23 07:32 05/07/23 07:32 05/07/23 07:32 05/07/23 07:32 05/07/23 08:00
Intake & Output
05/05/23 05/06/23 05/07/23 05/08/23
06:59 06:59 06:59 06:59
Intake Total 960 / 960 720 / 720 480 / 480
Output Total 950 / 950
Balance 10 10 720 / 720 480 / 480
Physical Exam
Physical Exam
Elderly woman who does not appear to be in acute distress, lying in bed
Irregularly irregular, normal S1 and S2, no S3 no S4 is a grade 1/6 apical holosystolic murmur no rubs
She would not sit up for me, lungs are clear anteriorly bilaterally
Abdomen soft nontender nondistended with normoactive bowel sounds
+2 lower extremity edema bilateral
--- NOTE | 2023-05-07 11:52 | CM ---
CM spoke with patients daughter, Roshan, discussed PT recommendation of SNF. Roshan is not agreeable for patient to go to SNF, reports patient lives at home with family and there is always someone home. Roshan reports patient has worked with [facility] in
the past and if [facility] can come out as soon as they are discharged it would be helpful. Roshan reports patient is also current with [facility], along with [facility]. Roshan reports [facility] are out four days a week for four
hours and help do exercises with patient along with bathing, toileting, etc. Roshan reports she does not feel her mother will benefit from going to SNF and will do better at home with [facility], [facility], and family support. CM will continue to follow
for discharge planning needs, will update [facility] upon patient discharge.
Plan; home with family, [facility], [facility], and [facility].
[2023-05-07 15:00] VITALS: BP 126/72
[2023-05-07] MEDS: TYLENOL 650 MG PO (15:42)
[2023-05-07] MEDS: LOVENOX 40 MG SC (17:08)
[2023-05-07] MEDS: COREG PO (21:34)
[2023-05-07] MEDS: NORVASC PO (21:35)
[2023-05-07] MEDS: RISPERDAL 0.5 MG PO (21:36)
[2023-05-07] MEDS: SINEQUAN 25 MG PO (21:36)
[2023-05-07] MEDS: LIPITOR 20 MG PO (21:36)
[2023-05-07 23:00] VITALS: BP 114/74
[2023-05-08 06:00] VITALS: BMI 32.6
[2023-05-08] MEDS: XANAX 0.25 MG PO ×2 (06:14→17:14)
--- NOTE | 2023-05-08 06:59 | W.PN.HOSP.TC ---
Today's Communication/Plan
-
cont diuresis as per cardio
home oxygen assessment in AM
diet modified nectar thick liquid
pending VSE evaluation
Assessment / Plan
Assessment / Plan
Physical Exam
General: No Apparent Distress
HEENT: Anicteric, Moist mucous membranes and Oxygen (Nasal Cannula) Hard of Hearing
Respiratory: Crackles bilaterally
Cardiac: S1/S2 and Irregular Rhythm
GI: Soft and Non Tender. Positive bowel sounds.
Musculoskeletal: No Cyanosis and Other (+1 pitting edema bilateral lower extremities)
Skin: Warm and Dry
Neuro: Awake, Alert, Conversant

ECHO appreciated
Normal left ventricular size and systolic function. Mild concentric left
ventricular hypertrophy. No regional wall motion abnormalities are seen. LV
ejection fraction is 55-60% by visual assessment. Diastolic function
indeterminate due to atrial fibrillation.
Increased right ventricular wall thickness. Normal right ventricular systolic
function.
Structurally normal mitral valve. Mitral annular calcification. Mitral valve
opens normally. Trace mitral regurgitation.
Trileaflet aortic valve. Thickened aortic valve with normal leaflet excursion.
Trace aortic regurgitation.
Tricuspid valve opens normally. Mild tricuspid regurgitation. Estimated
pulmonary artery pressure of 29 mmHg, assuming a right atrial pressure of 3
mmHg.
Fat pad present. Trivial to small pericardial effusion likely without
echocardiographic evidence of hemodynamic compromise. Some fibrinous stranding
noted.
Compared to prior study 12/17/2021 no significant change noted
Assessment/Plan
Acute Hypoxic Respiratory Failure secondary to Acute Congestive Heart Failure
-Continue supplemental oxygen
-given persistent oxygen dependence and associate sinus tachycardia possible atelectasis vs pna as noted on cxr (unlikely pna given afebrile no leukocytosis), CT chest was obtained
CT chest
-negative for PE, noted atelectasis, moderate coronary artery calcification, elevated right heart pressure
-Speech therapy appreciated aspiration diet modified Pureed diet with nectar thick liquids (prior pureed w/ thin liquids) VSE ordered for further evaluation
Acute on Chronic Heart Failure with Preserved Ejection Fraction
-ProBNP was 2630
-Consulted Cardiology, recommendations appreciated
-Echocardiogram results as above
-Per cardiology, patient failed outpatient attempts at increasing diuretics (was on Torsemide outpatient)
-Continue Lasix 40mg IV BID
-Continue spironolactone
-Monitor Is&Os and Daily Weights
Permanent Atrial Fibrillation
-Patient is not on anticoagulation as outpatient
-Continue Coreg for rate control
-Coreg increased to 6.25mg BID as heart rates were higher on 05/04/23 morning
Right Bundle Branch Block
Bradycardia and Falls
Essential Hypertension (with prior history of hypertensive encephalopathy)
-Continue Amlodipine and Coreg with hold parameters
Hyperlipidemia
-Continue atorvastatin
COPD
Advanced Dementia
-Continue memantine
Anxiety/Depression
-Continue alprazolam, doxepin, fluoxetine and risperidone as prior to admission
Dysphagia
-Continue Aspiration precautions - Sit up-right/out of bed for meals
-Continue diet as above pureed nectar thick liquids pending VSE
DVT proph: Lovenox
Code Status: Full Code
discussed with patient's daughter Roshan
I spent a total of 52 minutes with the patient or on the floor. More than 50% of this time involved counseling and coordination of care.
Anticipated Discharge: 24 - 48 hours
Subjective/Interval History
-
Date of Service: May 08, 2023
No acute distress. Appears comfortable, remains oxygen dependent. Daughter Roshan present during evaluation
Objective Data
-
Labs:
Laboratory Results
05/08/23
06:00
WBC Pending
Hgb Pending
Hct Pending
Plt Count Pending
Sodium Pending
Potassium Pending
Chloride Pending
Carbon Dioxide Pending
BUN Pending
Creatinine Pending
Glucose Pending
Calcium Pending
Vital Signs:
Vital Signs
Temp Pulse Resp BP Pulse Ox
98.8 F 104 20 114/74 94
05/07/23 23:00 05/07/23 23:00 05/07/23 23:00 05/07/23 23:00 05/07/23 23:00
I&O
05/06/23 05/07/23 05/08/23
06:59 06:59 06:59
Intake Total 720 / 720 480 / 480 720 / 720
Balance 720 / 720 480 / 480 720 / 720
[2023-05-08] MEDS: PROZAC 20 MG PO (07:54)
[2023-05-08] MEDS: ALDACTONE 12.5 MG PO (07:55)
[2023-05-08] MEDS: LOW STRENGTH ASPIRIN 81 MG PO (07:55)
[2023-05-08] MEDS: COREG 6.25 MG PO ×2 (07:56→22:45)
[2023-05-08] MEDS: LASIX 40 MG IV ×2 (07:56→15:59)
[2023-05-08] MEDS: NAMENDA 10 MG PO ×2 (07:56→23:00)
[2023-05-08] MEDS: NORVASC 2.5 MG PO ×2 (07:56→23:04)
[2023-05-08 08:25] LABS: Hematocrit 39.9 % (37.0-47.0); Hemoglobin 12.8 g/dL (12.0-16.0); Mean Corp Hgb Conc. 32.1 g/dL (33.0-37.0); Mean Corpuscular Hgb 27.6 pg (27.0-31.0); Mean Corpuscular Volume 86.2 fL (81.0-99.0); Platelet Count 337 10^3/uL (130-400); Red Blood Cell Count 4.63 10^6/uL (4.20-5.40); Red Cell Dist. Width 14.4 % (11.5-14.5); White Blood Cell Count 10.3 10^3/uL (4.8-10.8)
--- NOTE | 2023-05-08 08:40 | W.PN.CARDCBS ---
Addendum entered and electronically signed by Tamar Reeder PA-C 05/08/23 15:35:
Called and updated patient's daughter, Roshan on the phone. All questions answered.
Addendum entered and electronically signed by Domenico Ram MD 05/08/23 12:42:
I saw and examined the patient.
The CAPACITY PLANNING MANAGER or PA's note was reviewed and I agree with the note.
Comment: General: Well developed, well nourished in NAD.
Neck: Supple, no JVD, HJR, carotids +2 B/L, no bruits bilaterally.
Heart: Non displaced PMI, irregular, no murmurs, No S3, S4, no rubs.
Lungs: Scattered rhonchi
Extremities: No clubbing, cyanosis or edema bilaterally.
Neuro: Awake but confused
She is diuresing with stable renal function. Will continue IV Lasix. Weight might be down is much as 20 pounds since admission. She remains on 4 L. She might need oxygen on discharge
Original Note:
Today's Communication / Plan
-
Continue diuresis
Impression / Plan
-
PCP: Dr. Allred
Roofing Subcontractor: Dr. Serrano
Impression:
Acute on Chronic HFpEF
Advanced dementia
Permanent atrial fibrillation
h/o sinus bradycardia and falls 08/2020
RBBB
HTN
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
COPD
h/o major depressive disorder
Hyperlipidemia
ECHO 09/09/20: EF 75%.� RV normal size and function.� Mild MR.� No or AI.� Trace TR.� PAP 29 mmHg.� This was compared to echo from October 2007, no significant interval changes seen.
Echo 12/17/21: EF 65 to 70%, concentric LVH, stage I DD, trace MR/TR, PAP 35 mmHg
Echo 05/04/2023: EF 55 to 60%, mild concentric LVH, trace MR, trace AR, mild TR, estimated PAP 29 mmHg, fat pad present, trivial to small pericardial effusion without evidence of hemodynamic compromise, fibrinous stranding noted.
Plan:
-Presented with worsening shortness of breath and hypoxia. Admitted for acute heart failure exacerbation.
-Continue IV Lasix 40 mg BID.� Creatinine stable at 0.8.� Follow with diuresis, may be close to transitioning to PO.
-Weight down as much as 20lbs this admission, down to 178lbs on 05/08. Follow daily weights, I&O's.�
-Remains in atrial fibrillation. Continue coreg 6.25mg BID. Dose increased 05/04 for better rate control.
-Not anticoagulated by family wishes.
-Echo 05/04 with preserved EF and stable trivial/mild valvular disease as noted above.
-BP stable.� Continue spironolactone, Coreg, and amlodipine.
-On 4 L NC.� Wean as able.
-PT/OT.
-Follow up arranged.
HPI: June is a 89-year-old female with past medical history of chronic HFpEF, permanent A-fib, bradycardia and falls, RBBB, hypertension with prior hypertensive encephalopathy, dementia, COPD, and hyperlipidemia who presents to ER for evaluation
of worsening shortness of breath. Patient is unable to provide history given advanced dementia and history is obtained from medical record. She reportedly had an upper respiratory infection a few weeks ago and at this time, her daughter was giving
her more fluids to help get her through this viral illness. She continued to be hypoxic and came to ER for further evaluation. In ER, patient was found to have evidence of volume overload on exam with proBNP 2,630. She is hypoxic and on 4 L of
oxygen currently. She was admitted for further workup and evaluation. Cardiology consulted given acute heart failure exacerbation. Patient has no acute complaints currently.
Progress Note - Roofing Subcontractor
Subjective
Date of Service: May 08, 2023
Offers no complaints.
Objective
Labs:
05/08/23 08:01
Labs
Hgb 12.8 g/dL (12.0-16.0) 05/08/23 08:01
Hct 39.9 % (37.0-47.0) 05/08/23 08:01
Plt Count 337 10^3/uL (130-400) 05/08/23 08:01
Sodium 140 mmol/L (135-145) 05/07/23 06:56
Potassium 3.8 mmol/L (3.5-5.1) 05/07/23 06:56
BUN 31 mg/dl (7-17) H 05/07/23 06:56
Creatinine 0.9 mg/dL (0.6-1.0) 05/07/23 06:56
Glucose 107 mg/dl (70-99) H 05/07/23 06:56
Vital Signs and I&O:
Vital Signs
Temp Pulse Resp BP Pulse Ox
98.8 F 104 20 114/74 94
05/07/23 23:00 05/07/23 23:00 05/07/23 23:00 05/07/23 23:00 05/07/23 23:00
Vital Signs
Temp Pulse Resp BP Pulse Ox
98.8 F 104 20 114/74 94
05/07/23 23:00 05/07/23 23:00 05/07/23 23:00 05/07/23 23:00 05/07/23 23:00
Intake & Output
05/06/23 05/07/23 05/08/23 05/09/23
06:59 06:59 06:59 06:59
Intake Total 720 / 720 480 / 480 720 / 720
Balance 720 / 720 480 / 480 720 / 720
Physical Exam
Physical Exam
GEN: No distress, awake, oriented to self. On supp O2
HEENT: supple, anicteric, mmm
LUNGS: CTA anteriorly
CV: Irreg, distant heart sounds, S1/S2, no murmur
ABD: soft, BS+, NT/ND
EXT: No cyanosis, clubbing. +1 edema of B/L LE
NEURO: Gross non-focal
SKIN: Warm, pink, dry. No rash
[2023-05-08 09:11] LABS: Blood Urea Nitrogen 29 mg/dl (7-17); Calcium 8.9 mg/dl (8.4-10.2); Carbon Dioxide 33 mmol/L (22-30); Chloride 98 mmol/L (98-107); Estimated Creatinine Clearance 51 ml/min; Glucose 103 mg/dl (70-99); Magnesium 2.5 mg/dl (1.6-2.3); Phosphorus 4.6 mg/dl (2.5-4.5); Potassium 3.8 mmol/L (3.5-5.1); Sodium 138 mmol/L (135-145); eGFR > 60.00
--- NOTE | 2023-05-08 10:37 | PTCARENOTE ---
Patient received awake , denies any pain or discomfort. Appetite fair, needs assist with meals . Turned q 2 hours . call siddiqui in reach.
--- NOTE | 2023-05-08 11:25 | PTOTSP ---
ST Follow-Up Note
Pt presents with a moderate oropharyngeal dysphagia characterized by inadequate natural dentition/ill-fitting false dentition for advanced diet consistency trials as well as poor airway protection as evidenced by overt coughing with thin liquids
across presentation styles requiring suctioning due to inadequate expectoration.
Recommendations:
- DOWNGRADE to PUREED SOLIDS and MODERATELY THICK (HONEY THICK) LIQUIDS.
- Meds crushed in puree.
- STRICT aspiration precautions - only feed when fully awake, alert, and upright.
- Video fluoroscopic swallow study for more information vs Goals of Care Conversation (caregiver reportedly not interested in diet consistency changes, per RN).
- GROUNDS RESTORATION SPECIALIST to continue to follow closely.
[2023-05-08 13:30] VITALS: PULSE 93; O2SAT 97
[2023-05-08 13:36] VITALS: PULSE 97; O2SAT 93
--- NOTE | 2023-05-08 13:41 | CM ---
Spoke with daughter Roshan bedside.
Roshan requesting TC from , TT to .
Plan is home with [facility], spoke with Ephraim/liaison re nurse visit day after d/c and PT/OT possibly 2 x per week.
Per Roshan, ambulance transport will be required for d/c.
Home address verified.
IMM completed.
Ambulance medical necessity forms on chart.
Plan: home with [facility] when stable, via ambulance transport.
[facility]
[2023-05-08 15:35] VITALS: BP 112/78
[2023-05-08 15:57] VITALS: BP 112/78
[2023-05-08] MEDS: LOVENOX 40 MG SC (17:14)
[2023-05-08 23:04] VITALS: BP 125/87
[2023-05-08] MEDS: LIPITOR 20 MG PO (23:05)
[2023-05-08] MEDS: RISPERDAL 0.5 MG PO (23:06)
[2023-05-08] MEDS: SINEQUAN 25 MG PO (23:06)
[2023-05-09 05:36] VITALS: BMI 33.0
[2023-05-09 07:23] LABS: Hematocrit 40.6 % (37.0-47.0); Hemoglobin 13.1 g/dL (12.0-16.0); Mean Corp Hgb Conc. 32.3 g/dL (33.0-37.0); Mean Corpuscular Hgb 28.2 pg (27.0-31.0); Mean Corpuscular Volume 87.3 fL (81.0-99.0); Mean Platelet Volume 10.4 fL (7.4-10.4); Platelet Count 328 10^3/uL (130-400); Red Blood Cell Count 4.65 10^6/uL (4.20-5.40); Red Cell Dist. Width 14.3 % (11.5-14.5); White Blood Cell Count 10.2 10^3/uL (4.8-10.8)
--- NOTE | 2023-05-09 07:27 | W.PN.HOSP.TC ---
Today's Communication/Plan
-
discussed with daughter LANDEN aware of risk of aspiration and wants to continue with oral diet as is
cont diuresis as per cardio, following transition to oral diuretics, discharge home with already established home services and palliative care
Home oxygen set up prior to discharge anticipated tomorrow
Assessment / Plan
Assessment / Plan
Physical Exam
General: No Apparent Distress
HEENT: Anicteric, Moist mucous membranes and Oxygen (Nasal Cannula) Hard of Hearing
Respiratory: Crackles bilaterally
Cardiac: S1/S2 and Irregular Rhythm
GI: Soft and Non Tender. Positive bowel sounds.
Musculoskeletal: No Cyanosis and Other (+1 pitting edema bilateral lower extremities)
Skin: Warm and Dry
Neuro: Awake, Alert, Conversant

ECHO appreciated
Normal left ventricular size and systolic function. Mild concentric left
ventricular hypertrophy. No regional wall motion abnormalities are seen. LV
ejection fraction is 55-60% by visual assessment. Diastolic function
indeterminate due to atrial fibrillation.
Increased right ventricular wall thickness. Normal right ventricular systolic
function.
Structurally normal mitral valve. Mitral annular calcification. Mitral valve
opens normally. Trace mitral regurgitation.
Trileaflet aortic valve. Thickened aortic valve with normal leaflet excursion.
Trace aortic regurgitation.
Tricuspid valve opens normally. Mild tricuspid regurgitation. Estimated
pulmonary artery pressure of 29 mmHg, assuming a right atrial pressure of 3
mmHg.
Fat pad present. Trivial to small pericardial effusion likely without
echocardiographic evidence of hemodynamic compromise. Some fibrinous stranding
noted.
Compared to prior study 12/17/2021 no significant change noted
Assessment/Plan
Acute Hypoxic Respiratory Failure secondary to Acute Congestive Heart Failure
-Continue supplemental oxygen
-given persistent oxygen dependence and associate sinus tachycardia possible atelectasis vs pna as noted on cxr (unlikely pna given afebrile no leukocytosis), CT chest was obtained
-CT chest noted negative for PE, noted atelectasis, moderate coronary artery calcification, elevated right heart pressure
-home oxygen assessment appreciated 05/09
Patient is in need of oxygen at 4 liters/minute via nasal cannula continuously due to pulse oximetry of 84% on room air at rest. Oxygen will help to improve hypoxemia. Patient is mobile within the home. DuoNeb therapy has been tried and is
ineffective in treating hypoxemia related symptoms. Oxygen is needed to improve symptoms.
Acute on Chronic Heart Failure with Preserved Ejection Fraction
-ProBNP was 2630
-Consulted Cardiology, recommendations appreciated
-Echocardiogram results as above
-Per cardiology, patient failed outpatient attempts at increasing diuretics (was on Torsemide outpatient)
-Continue Lasix 40mg IV BID
-Continue spironolactone
-Monitor Is&Os and Daily Weights
Permanent Atrial Fibrillation
-Patient is not on anticoagulation as outpatient
-Continue Coreg for rate control
-Coreg increased to 6.25mg BID as heart rates were higher on 05/04/23 morning
Right Bundle Branch Block
Bradycardia and Falls
Essential Hypertension (with prior history of hypertensive encephalopathy)
-Continue Amlodipine and Coreg with hold parameters
Hyperlipidemia
-Continue atorvastatin
COPD
Advanced Dementia
-Continue memantine
Anxiety/Depression
-Continue alprazolam, doxepin, fluoxetine and risperidone as prior to admission
Dysphagia
-Continue Aspiration precautions - Sit up-right/out of bed for meals
-Speech therapy appreciated aspiration diet modified Pureed diet with nectar thick liquids (prior pureed w/ thin liquids) VSE ordered for further evaluation
-05/09 unfortunately VSE noted significant aspiration to the point where patient was recommended strict NPO and alternative means of nutrition
-discussed with Daughter Roshan SCHUSTER who has experienced similar situation with her father receiving PEG tube prior to passing, does not want patient to go through the same
-Goals of care were discussed, patient already on Palliative care at home, daughter able to verbalize her understanding of risks of aspiration with continued oral intake (including but not limited to progressive worsening of respiratory status and
infection aspiration pneumonia) and wants patient to continue with current oral diet. Daughter with realistic expectations also expressed that she wants patient to continue with palliative care at home and, eventually, transition patient to home
hospice when appropriate.
DVT proph: Lovenox
Code Status: Full Code
discussed with patient's daughter Roshan
I spent a total of 52 minutes with the patient or on the floor. More than 50% of this time involved counseling and coordination of care.
Anticipated Discharge: Within 24 hours
Subjective/Interval History
-
Date of Service: May 09, 2023
Awake alert during evaluation. Apparent dementia. Daughter Roshan present during evaluation
Objective Data
-
Labs:
Laboratory Results
05/09/23
06:27
WBC 10.2
Hgb 13.1
Hct 40.6
Plt Count 328
Sodium Pending
Potassium Pending
Chloride Pending
Carbon Dioxide Pending
BUN Pending
Creatinine Pending
Glucose Pending
Calcium Pending
Vital Signs:
Vital Signs
Temp Pulse Resp BP Pulse Ox
99.3 F 90 20 125/87 93
05/08/23 23:04 05/08/23 23:04 05/08/23 23:04 05/08/23 23:04 05/08/23 23:04
I&O
05/08/23 05/09/23 05/10/23
06:59 06:59 06:59
Intake Total 720 / 720 1080 / 1080
Balance 720 / 720 1080 / 1080
[2023-05-09 07:30] VITALS: BP 114/70
[2023-05-09] MEDS: LOW STRENGTH ASPIRIN 81 MG PO (07:44)
[2023-05-09] MEDS: XANAX 0.25 MG PO ×2 (07:44→17:00)
[2023-05-09] MEDS: NORVASC 2.5 MG PO (07:44)
[2023-05-09] MEDS: PROZAC 20 MG PO (07:44)
[2023-05-09] MEDS: COREG 6.25 MG PO ×2 (07:44→19:54)
[2023-05-09] MEDS: LASIX 40 MG IV ×2 (07:45→16:57)
[2023-05-09] MEDS: ALDACTONE 12.5 MG PO (07:45)
[2023-05-09] MEDS: NAMENDA 10 MG PO ×2 (07:45→19:54)
[2023-05-09 08:14] LABS: Blood Urea Nitrogen 34 mg/dl (7-17); Calcium 8.9 mg/dl (8.4-10.2); Carbon Dioxide 36 mmol/L (22-30); Chloride 95 mmol/L (98-107); Estimated Creatinine Clearance 45 ml/min; Glucose 100 mg/dl (70-99); Magnesium 2.6 mg/dl (1.6-2.3); Phosphorus 4.2 mg/dl (2.5-4.5); Potassium 3.6 mmol/L (3.5-5.1); Sodium 137 mmol/L (135-145); eGFR > 60.00
--- NOTE | 2023-05-09 08:47 | RESPNOTE ---
Home O2 assessment:
at rest on ROOM AIR- SPO2 84%.
re-applied O2 at 2L, after 2 minutes SPO2 only 88%.
O2 increased to 3L, after 2 minutes SpO2 only 89%.
increased O2 to 4L, after 2 minutes, SPO2 90%.
Per PT notes from 05/08, patient is minimally mobile, requiring max assist.
did not walk with patient, patient somnolent.
[2023-05-09 11:30] VITALS: BP 130/86
--- NOTE | 2023-05-09 12:45 | PTOTSP ---
Video Swallow Examination
Patient presents with moderate oral/pharyngeal dysphagia and signs concerning for esophageal dysphagia with significant retention throughout the entire esophagus and retrograde flow from cervical esophagus to the pyriform sinuses. There was silent
aspiration of thin liquids and aspiration with an ineffective cough response with mildly thick liquids.
Patient is at a risk for top-down aspiration with thin and mildly thick liquids and at risk for bottom-up aspiration with all PO. Recommend NPO until further medical evaluation by GI.
Recommend:
1. NPO until further GI assessment
2. Goals of care discussions with family regarding nutrition/hydration given dysphagia in a patient with advanced dementia
3. Medications via non-oral means if able
4. Oral care 3-5x daily
5. Will follow up for family education as appropriate pending further goals of care discussions.
--- NOTE | 2023-05-09 12:55 | W.PN.CARDCBS ---
Today's Communication / Plan
-
Difficult volume status and remains hypoxemic
Continue IV Lasix but might consider change to oral Lasix in the next 24 hours
Hypoxemia may be due to aspiration and swallowing study has been done
Impression / Plan
-
PCP: Dr. Allred
Bakery Machine Mechanic: Dr. Serrano
Impression:
Acute on Chronic HFpEF
Advanced dementia
Permanent atrial fibrillation
h/o sinus bradycardia and falls 08/2020
RBBB
HTN
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
COPD
h/o major depressive disorder
Hyperlipidemia
ECHO 09/09/20: EF 75%.� RV normal size and function.� Mild MR.� No or AI.� Trace TR.� PAP 29 mmHg.� This was compared to echo from October 2007, no significant interval changes seen.
Echo 12/17/21: EF 65 to 70%, concentric LVH, stage I DD, trace MR/TR, PAP 35 mmHg
Echo 05/04/2023: EF 55 to 60%, mild concentric LVH, trace MR, trace AR, mild TR, estimated PAP 29 mmHg, fat pad present, trivial to small pericardial effusion without evidence of hemodynamic compromise, fibrinous stranding noted.
Plan:
Volume status very difficult to ascertain and not a good historian
Will continue IV Lasix for now but remains hypoxemic but might consider change to oral Lasix in the next 24 hours
Might be due to aspiration
Weight down as much as 11 lbs this admission
Remains in atrial fibrillation. Might need higher dose of Coreg for rate control
Not anticoagulated by family wishes.
HPI: June is a 89-year-old female with past medical history of chronic HFpEF, permanent A-fib, bradycardia and falls, RBBB, hypertension with prior hypertensive encephalopathy, dementia, COPD, and hyperlipidemia who presents to ER for evaluation
of worsening shortness of breath. Patient is unable to provide history given advanced dementia and history is obtained from medical record. She reportedly had an upper respiratory infection a few weeks ago and at this time, her daughter was giving
her more fluids to help get her through this viral illness. She continued to be hypoxic and came to ER for further evaluation. In ER, patient was found to have evidence of volume overload on exam with proBNP 2,630. She is hypoxic and on 4 L of
oxygen currently. She was admitted for further workup and evaluation. Cardiology consulted given acute heart failure exacerbation. Patient has no acute complaints currently.
Progress Note - Bakery Machine Mechanic
Subjective
Date of Service: May 09, 2023
Patient awake but confused
Objective
Labs:
05/09/23 06:27
05/09/23 06:27
Labs
Hgb 13.1 g/dL (12.0-16.0) 05/09/23 06:27
Hct 40.6 % (37.0-47.0) 05/09/23 06:27
Plt Count 328 10^3/uL (130-400) 05/09/23 06:27
Sodium 137 mmol/L (135-145) 05/09/23 06:27
Potassium 3.6 mmol/L (3.5-5.1) 05/09/23 06:27
BUN 34 mg/dl (7-17) H 05/09/23 06:27
Creatinine 0.9 mg/dL (0.6-1.0) 05/09/23 06:27
Glucose 100 mg/dl (70-99) H 05/09/23 06:27
Vital Signs and I&O:
Vital Signs
Temp Pulse Resp BP Pulse Ox
98.6 F 102 22 130/86 91
05/09/23 11:30 05/09/23 11:30 05/09/23 11:30 05/09/23 11:30 05/09/23 11:30
Vital Signs
Temp Pulse Resp BP Pulse Ox
98.6 F 102 22 130/86 91
05/09/23 11:30 05/09/23 11:30 05/09/23 11:30 05/09/23 11:30 05/09/23 11:30
Intake & Output
05/07/23 05/08/23 05/09/23 05/10/23
06:59 06:59 06:59 06:59
Intake Total 480 / 480 720 / 720 1080 / 1080
Balance 480 / 480 720 / 720 1080 / 1080
Physical Exam
Physical Exam
General: Awake but confused
Neck: Supple, no JVD, HJR, carotids +2 B/L, no bruits bilaterally.
Heart: Non displaced PMI, Irreg, no murmurs, No S3, S4, no rubs.
Lungs: Scattered rhonchi
Extremities: No clubbing, cyanosis or edema bilaterally.
Neuro: Awake but confused
[2023-05-09 15:15] VITALS: BP 104/66
--- NOTE | 2023-05-09 15:54 | CM ---
CM reviewed chart, patient plan is home with [facility]. Per Hospitalist, patient not stable for discharge. CM will update Ephraim at [facility] closer to patients discharge. Patient will require ambulance transport. CM will continue to follow for
discharge planning needs.
Plan; home with family and [facility] when stable, will require ambulance transport.
[facility]
[2023-05-09] MEDS: LOVENOX 40 MG SC (16:59)
[2023-05-09] MEDS: NORVASC PO (19:54)
[2023-05-09] MEDS: SINEQUAN 25 MG PO (19:54)
[2023-05-09] MEDS: LIPITOR 20 MG PO (19:54)
[2023-05-09] MEDS: RISPERDAL 0.5 MG PO (19:54)
[2023-05-09 23:43] VITALS: BP 102/63
--- NOTE | 2023-05-10 04:34 | DOWNTIME ---
There was a [employer] Downtime on 05/10/2023 from 0111 to 05/10/2023 at 0405. Downtime documentation of patient's care, including medication administrations, has been reconciled in the electronic record per guidelines. Refer to the
patient's paper chart under the miscellaneous tab to see printed paper medication records and downtime forms.
[2023-05-10 06:00] VITALS: BMI 32.0
--- NOTE | 2023-05-10 07:13 | W.PN.HOSP.TC ---
Today's Communication/Plan
-
discharge
Assessment / Plan
Assessment / Plan
Physical Exam
General: No Apparent Distress
HEENT: Anicteric, Moist mucous membranes and Oxygen (Nasal Cannula) Hard of Hearing
Respiratory: Crackles bilaterally
Cardiac: S1/S2 and Irregular Rhythm
GI: Soft and Non Tender. Positive bowel sounds.
Musculoskeletal: No Cyanosis and Other (+1 pitting edema bilateral lower extremities)
Skin: Warm and Dry
Neuro: Awake, Alert, Conversant

ECHO appreciated
Normal left ventricular size and systolic function. Mild concentric left
ventricular hypertrophy. No regional wall motion abnormalities are seen. LV
ejection fraction is 55-60% by visual assessment. Diastolic function
indeterminate due to atrial fibrillation.
Increased right ventricular wall thickness. Normal right ventricular systolic
function.
Structurally normal mitral valve. Mitral annular calcification. Mitral valve
opens normally. Trace mitral regurgitation.
Trileaflet aortic valve. Thickened aortic valve with normal leaflet excursion.
Trace aortic regurgitation.
Tricuspid valve opens normally. Mild tricuspid regurgitation. Estimated
pulmonary artery pressure of 29 mmHg, assuming a right atrial pressure of 3
mmHg.
Fat pad present. Trivial to small pericardial effusion likely without
echocardiographic evidence of hemodynamic compromise. Some fibrinous stranding
noted.
Compared to prior study 12/17/2021 no significant change noted
Assessment/Plan
Acute Hypoxic Respiratory Failure secondary to Acute Congestive Heart Failure
-Continue supplemental oxygen
-given persistent oxygen dependence and associate sinus tachycardia possible atelectasis vs pna as noted on cxr (unlikely pna given afebrile no leukocytosis), CT chest was obtained
-CT chest noted negative for PE, noted atelectasis, moderate coronary artery calcification, elevated right heart pressure
-home oxygen assessment appreciated 05/09
Patient is in need of oxygen at 4 liters/minute via nasal cannula continuously due to pulse oximetry of 84% on room air at rest. Oxygen will help to improve hypoxemia. Patient is mobile within the home. DuoNeb therapy has been tried and is
ineffective in treating hypoxemia related symptoms. Oxygen is needed to improve symptoms.
Acute on Chronic Heart Failure with Preserved Ejection Fraction
-ProBNP was 2630
-Consulted Cardiology, recommendations appreciated
-Echocardiogram results as above
-Per cardiology, patient failed outpatient attempts at increasing diuretics (was on Torsemide outpatient)
-Continue spironolactone
-Monitor Is&Os and Daily Weights
-Lasix IV 40 mg bid, per discussion with cardio, to convert to PO Lasix 40 mg BID on discharge.
Permanent Atrial Fibrillation
-Patient is not on anticoagulation as outpatient
-Continue Coreg for rate control
-Coreg increased to 6.25mg BID as heart rates were higher on 05/04/23 morning
Right Bundle Branch Block
Bradycardia and Falls
Essential Hypertension (with prior history of hypertensive encephalopathy)
-Continue Amlodipine and Coreg with hold parameters
Hyperlipidemia
-Continue atorvastatin
COPD
Advanced Dementia
-Continue memantine
Anxiety/Depression
-Continue alprazolam, doxepin, fluoxetine and risperidone as prior to admission
PT/OT appreciated SNF rehab recommended, patient's family/daughter PORenae declines in favor of home services
Dysphagia
-Continue Aspiration precautions - Sit up-right/out of bed for meals
-Speech therapy appreciated aspiration diet modified Pureed diet with nectar thick liquids (prior pureed w/ thin liquids) VSE ordered for further evaluation
-05/09 unfortunately VSE noted significant aspiration to the point where patient was recommended strict NPO and alternative means of nutrition
-discussed with Daughter Roshan SCHUSTER who has experienced similar situation with her father receiving PEG tube prior to passing, does not want patient to go through the same
-Goals of care were discussed, patient already on Palliative care at home, daughter able to verbalize her understanding of risks of aspiration with continued oral intake (including but not limited to progressive worsening of respiratory status and
infection aspiration pneumonia) and wants patient to continue with current oral diet. Daughter with realistic expectations also expressed that she wants patient to continue with palliative care at home and, eventually, transition patient to home
hospice when appropriate.
DVT proph: Lovenox
Code Status: Full Code
discussed with patient's daughter Roshan
Total Time Preparing Discharge ___50____ minutes including examination of the patient, summary of the hospital stay, instructions for continuing care to all relevant caregivers; and preparation of discharge records, prescriptions, and referral
forms if necessary.
Anticipated Discharge: Today
Subjective/Interval History
-
Date of Service: May 10, 2023
Seen and examined at bedside resting comfortably in bed, mild distress, patient wants to go home.
Objective Data
-
Labs:
Laboratory Results
05/10/23
06:07
WBC Pending
Hgb Pending
Hct Pending
Plt Count Pending
Sodium Pending
Potassium Pending
Chloride Pending
Carbon Dioxide Pending
BUN Pending
Creatinine Pending
Glucose Pending
Calcium Pending
Vital Signs:
Vital Signs
Temp Pulse Resp BP Pulse Ox
97.3 F 83 14 102/63 94
05/09/23 23:43 05/09/23 23:43 05/09/23 23:43 05/09/23 23:43 05/09/23 23:43
I&O
05/09/23 05/10/23 05/11/23
06:59 06:59 06:59
Intake Total 1080 / 1080 480 / 480
Balance 1080 / 1080 480 / 480
[2023-05-10 07:15] VITALS: BP 117/70
[2023-05-10 08:03] LABS: Hematocrit 40.1 % (37.0-47.0); Hemoglobin 12.9 g/dL (12.0-16.0); Mean Corp Hgb Conc. 32.2 g/dL (33.0-37.0); Mean Corpuscular Hgb 28.4 pg (27.0-31.0); Mean Corpuscular Volume 88.1 fL (81.0-99.0); Mean Platelet Volume 10.6 fL (7.4-10.4); Platelet Count 330 10^3/uL (130-400); Red Blood Cell Count 4.55 10^6/uL (4.20-5.40); Red Cell Dist. Width 14.3 % (11.5-14.5); White Blood Cell Count 10.3 10^3/uL (4.8-10.8)
[2023-05-10] MEDS: ALDACTONE 12.5 MG PO (08:06)
[2023-05-10] MEDS: LASIX 40 MG IV ×2 (08:08→16:04)
[2023-05-10] MEDS: COREG 6.25 MG PO (08:08)
[2023-05-10] MEDS: LOW STRENGTH ASPIRIN 81 MG PO (08:14)
[2023-05-10] MEDS: NAMENDA 10 MG PO (08:14)
[2023-05-10] MEDS: NORVASC 2.5 MG PO (08:15)
[2023-05-10] MEDS: PROZAC 20 MG PO (08:16)
[2023-05-10] MEDS: XANAX 0.25 MG PO ×2 (08:17→17:31)
[2023-05-10 08:42] LABS: Blood Urea Nitrogen 36 mg/dl (7-17); Carbon Dioxide 37 mmol/L (22-30); Chloride 91 mmol/L (98-107); Estimated Creatinine Clearance 45 ml/min; Glucose 104 mg/dl (70-99); Magnesium 2.5 mg/dl (1.6-2.3); Phosphorus 4.3 mg/dl (2.5-4.5); Potassium 3.6 mmol/L (3.5-5.1); Sodium 137 mmol/L (135-145); eGFR > 60.00
--- NOTE | 2023-05-10 10:58 | CM ---
Addendum entered by Holly Wilson 05/10/23 14:53:
[facility]

Addendum entered by Holly Wilson 05/10/23 14:50:
Oxygen delivered by Canelo at [employer], equipment will be delivered to her home, patients granddaughter will be home to accept. CM spoke with Ephraim from [facility], aware of patients discharge today, updated clinicals sent through
[facility]. IMM signed placed in chart. Ambulance transport scheduled for 6:30 p.m. CM will call Roshan, patients daughter, to update with time. CM will continue to follow for discharge planning needs.
Plan'; home with [facility]
Original Note:
CM spoke with patients daughter, Roshan, agreeable to [facility] for home O2. CM faxed information to Canelo at [facility]. CM will update [facility] regarding patients discharge disposition. CM will continue to follow for
discharge planning needs.
Plan; home with family and [facility], awaiting confirmation/delivery of home O2, will require ambulance transport.
--- NOTE | 2023-05-10 14:23 | W.DCSUMMARY ---
Discharge Summary
Discharge Data
Date of Admission: 05/03/23
Date of Discharge: 05/10/23
-
Pending Results: No
Hospital Course
87F heart failure, a-fib, hypertension, and advanced dementia who presents with increased shortness of breath.� Patient unable to provide history therefore history was obtained from family.� Patient had a cold several weeks ago at which time the
daughter was giving her increased fluids.� Patient was given some additional diuretics due to 'more puffy' feet.� Palliative care nurse visited the patient, and EMS was called due to hypoxia.� ECHO appreciated�EF 55-60% by visual assessment,
Diastolic function
�indeterminate due to atrial fibrillation,�compared to prior study 12/17/2021, no significant change noted. Acute Hypoxic Respiratory Failure secondary to Acute Congestive Heart Failure given persistent oxygen dependence and associate sinus
tachycardia possible atelectasis vs PNA as noted on cxr (unlikely pna given afebrile no leukocytosis), CT chest was obtained. CT chest noted negative for PE, noted atelectasis, moderate coronary artery calcification, elevated right heart pressure.
Home oxygen assessment appreciated 05/09 need of oxygen 4 liters/minute via nasal cannula continuously due to pulse oximetry of 84% on room air at rest. Acute on Chronic Heart Failure with Preserved Ejection Fraction, ProBNP was 2630, improved
Lasix IV 40 mg bid, per discussion with cardio, converted to PO Lasix 40 mg BID on discharge. Coreg increased to 6.25mg BID for better heart rate control. PT/OT evaluated and recommended SNF rehab. Patient's family/daughter LANDEN declined in favor
of home services. Dysphagia, speech therapy appreciated aspiration diet modified Pureed diet with nectar thick liquids (prior pureed w/ thin liquids) VSE ordered for further evaluation. 05/09 unfortunately VSE noted significant aspiration to the
point where patient was recommended strict NPO and alternative means of nutrition. Discussed with Daughter Roshan SCHUSTER who has experienced similar situation with her father receiving PEG tube prior to passing, reported that she does not want patient
to go through the same.
Goals of care were discussed, patient already on Palliative care at home, daughter able to verbalize her understanding of risks of aspiration with continued oral intake (including but not limited to progressive worsening of respiratory status and
infection aspiration pneumonia) and wanted patient to continue with current oral diet.� Daughter with realistic expectations also expressed that she wants patient to continue with palliative care at home and, eventually, transition patient to home
hospice when appropriate.� �Otherwise relatively medically stable, home oxygen was arranged and patient was discharged home with home services and outpatient follow up recommendations.
Discharge Plan
-
Patient Disposition: Home with Home Care
Discharge Diagnosis/Procedures: Acute Hypoxic Respiratory Failure requiring oxygen supplementation, Acute on Chronic Heart Failure with Preserved Ejection Fraction, Dementia, Dysphagia, Silent Aspiration, Atrial Fibrillation, Hypertension,
Hyperlipidemia, Chronic Obstructive Pulmonary Disease, Anxiety/Depression
Condition: Fair
Diet: Other diet
Additional Diets: pureed diet with nectar thick liquids
Activity: With assistance
Driving Restrictions: No driving
Bathing Restrictions: None
Other Services: VN
Specialty Instructions: Weigh Daily- Call MD for wt gain/loss 3 lbs overnight/5 lbs in 1 week
Stop these medications:: Torsemide discontinued in favor of lasix
Activity Restrictions/Additional Instructions:
Please follow up with palliative care following discharge.
Please follow up with your primary care provider in 1 week of discharge and keep your appointment with cardiology.
Coreg has been increased to 6.25 mg twice a day for better heart rate control atrial fibrillation and heart failure.
Torsemide has been discontinued in favor of Lasix 40 mg twice a day for better control of Heart Failure.
Please take medications as prescribed/recommended and follow up with primary care provider and/or other healthcare provider involved in your care for refills and/or further adjustments to your medication regimen as necessary.
vitamins A,C,K-biui-dmeevz 4,296 mcg-226 mg-90 mg capsule (PreserVision AREDS) 1 cap PO HS Supplement
alprazolam 0.5 mg tablet 0.25 mg PO BID Mental Health/Anxiety
aspirin 81 mg chewable tablet 81 mg PO DAILY Supplement
doxepin 25 mg capsule 25 mg PO HS Mental Health/Anxiety
risperidone 0.5 mg tablet 0.5 mg PO HS Mental Health/Anxiety
amlodipine 2.5 mg tablet 2.5 mg PO BID Hypertension
spironolactone 25 mg tablet 12.5 mg PO DAILY Hypertension Heart Failure
atorvastatin 20 mg tablet (Lipitor) 20 mg PO HS Hyperlipidemia
fluoxetine 20 mg capsule (Prozac) 20 mg PO DAILY Mental Health/Anxiety
guaifenesin 600 mg tablet, extended release 12 hr (Mucinex) 600 mg PO BIDPRN PRN cough
memantine 10 mg tablet 10 mg PO BID Dementia
polyethylene glycol 3350 17 gram oral powder packet (Miralax) 17 g PO DAILYPRN PRN constipation
carvedilol 6.25 mg tablet 6.25 mg PO BID Heart Failure Heart Rate Control Atrial Fibrillation
furosemide 40 mg tablet (Lasix) 40 mg PO BID Heart Failure
Instructions: *[facility] Heart Failure Instructions
Referrals:
Pamela Gr CRNP [Specified Professional Personl] - 05/15/23 2:00 pm (You have a follow up visit with Dr. Serrano's TELESCOPE REPAIRER, Pamela, at the [facility]. Please call with questions.)
Jemal Allred MD [Family Provider] -
Prescriptions:
New
carvedilol 6.25 mg Tablet
6.25 mg PO BID 30 Days Qty: 60 0RF
furosemide [Lasix] 40 mg tablet
40 mg PO BID 30 Days Qty: 60 0RF
Continued
PreserVision AREDS 1 CAP capsule
1 cap PO HS
doxepin 25 MG capsule
25 mg PO HS
alprazolam 0.5 MG tablet
0.25 mg PO BID
Patient Comments:
05/13/23--- last filled 11/18/21 04/19/23 #60 tabs for 30 days from [facility]
aspirin 81 MG tablet,chewable
81 mg PO DAILY
risperidone 0.5 MG tablet
0.5 mg PO HS
amlodipine 2.5 mg Tablet
2.5 mg PO BID Qty: 60 0RF
spironolactone 25 mg Tablet
12.5 mg PO DAILY Qty: 30 0RF
atorvastatin [Lipitor] 20 mg Tablet
20 mg PO HS
polyethylene glycol 3350 [Miralax] 17 gram Powder In Packet
17 g PO DAILYPRN PRN (Reason: constipation)
fluoxetine [Prozac] 20 mg Capsule
20 mg PO DAILY
memantine 10 mg Tablet
10 mg PO BID
guaifenesin [Mucinex] 600 mg Tablet Extended Release 12hr
600 mg PO BIDPRN PRN (Reason: cough)
Discontinued
carvedilol 3.125 MG tablet
3.125 mg PO BID 30 Days Qty: 60 0RF
torsemide 20 mg tablet
20 mg PO DAILY
Discharge Orders:
Discharge Patient (As Directed); Ordered 05/10/23
Ordered By: Haja Locke
Discharge Date and Time
Discharge Date/Time: 05/10/23 19:31
[2023-05-10 15:21] VITALS: BP 131/60
[2023-05-10] MEDS: LOVENOX SC (17:27)
[2023-05-10] MEDS: TYLENOL 650 MG PO (17:28)
== END 2023-05-10 19:31 | disposition home health service (06) | DRG 291 ==
LOC: 4 WEST ACU 15:39
PROVIDERS: Physician Assistant Medical; Registered Nurse; ADMITTING PHYSICIAN Hospitalist; ATTENDING PHYSICIAN Internal Medicine; CONSULT PHYSICIAN Internal Medicine Cardiovascular Disease; EMERGENCY PHYSICIAN Emergency Medicine; FAMILY PHYSICIAN Internal Medicine
DX: I11.0 Hypertensive heart disease with heart failure (principal); I50.33 Acute on chronic diastolic (congestive) heart failure; J96.01 Acute respiratory failure with hypoxia; F03.93 Unspecified dementia, unspecified severity, with mood disturbance; F03.94 Unspecified dementia, unspecified severity, with anxiety; I48.21 Permanent atrial fibrillation; E78.00 Pure hypercholesterolemia, unspecified; E03.9 Hypothyroidism, unspecified; J44.9 Chronic obstructive pulmonary disease, unspecified; I45.10 Unspecified right bundle-branch block; R13.10 Dysphagia, unspecified; Z66 Do not resuscitate; Z79.82 Long term (current) use of aspirin
CPT/HCPCS: 71045; 71275; 74230; 80048; 80053; 83735; 83880; 84100; 84443; 84484; 85025; 85027; 87502; 87811; 92526; 92610; 92611; 93005; 93306; 97163; 97166; 97530; 99285; Q9967

== ENCOUNTER 2023-07-12 16:37 | Inpatient (IN) | payer OTHER, SELFPAY ==
[2023-07-12] VITALS (33 sets, daily range): BP systolic 79–262; BP diastolic 51–227; PULSE 2–90; BMI 31.0
[2023-07-12 11:18] LABS: % Basophils 0.5 % (0-2); % Eosinophils 3.1 % (0-6); % Immature Granulocytes 0.6 % (0-0.5); % Lymphocytes 3.8 % (20.5-51.1); % Monocytes 7.1 % (1.7-9.3); % Neutrophils 84.9 % (42.2-75.2); Absolute Eosinophils 0.3 10^3/uL (0-0.7); Absolute Immature Granulocytes 0.1 10^3/uL (0-0.05); Absolute Lymphocytes 0.3 10^3/uL (1.2-3.4); Absolute Monocytes 0.6 10^3/uL (0.1-0.6); Absolute Neutrophils 7.1 10^3/uL (1.4-6.5); Hematocrit 41.2 % (37.0-47.0); Mean Corpuscular Hgb 28.5 pg (27.0-31.0); Mean Corpuscular Volume 83.9 fL (81.0-99.0); Nucleated Red Blood Cells % 0 %; Platelet Count 292 10^3/uL (130-400); Red Blood Cell Count 4.91 10^6/uL (4.20-5.40); Red Cell Dist. Width 15.4 % (11.5-14.5); White Blood Cell Count 8.3 10^3/uL (4.8-10.8)
--- NOTE | 2023-07-12 11:23 | ED.GENMED ---
History of Present Illness
General
Chief Complaint: Breathing Problem
Source: patient, records and ambulance crew
Exam Limitations: none
Time Seen by Provider: 07/12/23 11:10
Nursing documentation reviewed up to this point in time: agreed with
Travel History
Have you had any contact with someone who has COVID-19?: Unable to Answer
Do you have any symptoms of coronavirus? Fever > 100 degrees, chills, cough, shortness of breath, sore throat, loss of taste or smell, muscle aches, or headache?: Unable to Answer
History of Present Illness
History of Present Illness:
87-year-old female with a past medical history of dementia, hypertension, hyperlipidemia, congestive heart failure, atrial fibrillation, chronic respiratory failure on 3 L of home oxygen who presents to the emergency department via EMS from home
where she lives with her family; she presents due to hypoxia and breathing difficulties. Patient is a very limited historian due to her dementia. EMS reports that they were called for worsening shortness of breath; they report that they found
patient hypoxic on her normal 3 L of oxygen to the 60s. She was started on 5 L of oxygen via nasal cannula with minimal improvement and so she was transitioned to CPAP and transported to the emergency department. Family reported the patient is a
DNR/DNI to EMS. I spoke with patient's daughter on the phone to obtain collateral history: She says patient has a chronic cough and is chronically on 3 L and typically has an oxygen saturation between 94 to 95% on 3 L. Yesterday afternoon they
noticed that patient seemed to be slightly more confused and seemed to be coughing more but had a weaker cough and did not clear her phlegm the way she typically would. Last night she was coughing throughout the night and this morning cough started
to be productive of whitish phlegm. They noticed that increasing weakness and she was having difficulty even standing. Oxygen level worsening and EMS called to the scene.
Past History
Past History
ED Past Medical History: Arrthythmia, CHF, HTN, Hypercholesterolemia, Psychiatric and Other
ED Past Surgical History: Negative Cardiac
Social History
Tobacco: Non-smoker
Alcohol: None
Drug: None
Personal:
Living: with family
Employment: Not employed
Family History
Family History: Other (Noncontributory)
Review of Systems
Review of Systems
All Other Systems: ROS reviewed and negative except as documented in HPI and ROS (Review of systems somewhat limited due to her history of dementia)
Constitutional: Denies fever
Respiratory: Reports cough and trouble breathing
Cardiac: Denies chest pain
ABD/GI: Denies abdominal pain or nausea
Neurological: Denies dizzy or headache
Phy Exam
Physical Exam
Physical Exam:
General: Awake, alert, oriented to person but not place or time
Head: Normocephalic, atraumatic
Eyes: Conjunctiva normal, sclera anicteric
Throat: Airway intact, handling secretions
Neck: Trachea midline, no JVD noted
Lungs: Patient has tachypnea and hypoxia currently on nonrebreather saturating 90-92%; she has slightly diminished breath sounds at the lung bases but no rales or wheezing appreciated
Heart: Tachycardia with irregularly irregular rhythm, no murmurs, gallops, or rubs
Abd: Soft, non distended, nontender
Neuro: Awake and alert, no gross motor or sensory deficits
Extremities: No significant edema in extremities, distal extremities warm well-perfused
Scores
Heart Failure Risk
Heart Failure Risk Score: Not Applicable
Heart Score for Chest Pain Patients
STEMI patient?: Not applicable
Withdrawal Assessment of Alcohol
Withdrawal Assessment Completed?: Not applicable
Course
Orders/Labs/Results
Orders:
Orders
07/12/23 11:04
Electrocardiogram (*1) Urgent
Reason for Study: Shortness of Breath
Portable Chest Xray [CR Chest Portable - 1 View] Urgent
Comment:
Reason For Exam: sob
Reason Study Needs to be Portable: Unable to Transport
07/12/23 11:05
EKG- Treatment ONCE
07/12/23 11:09
ABG [Arterial Blood Gas] Urgent
%Oxygen/Room Air: 100
Comment: 10L
Complete Blood Count/With Diff Urgent
Comprehensive Metabolic Panel Urgent
NT-proBNP Urgent
Prothrombin Time Urgent
Troponin I Urgent
07/12/23 11:11
CT Chest Pe Study Urgent
Comment:
Reason For Exam: acute onset hypoxia
07/12/23 11:33
Pt Eval And Treat Routine
Activity Level: With Assistance
07/12/23 14:27
Ipratropium/Albuterol Sulfate [Duoneb] 3 ml INH R NOW ONE
MethylPREDNISolone PF [Solu-Medrol Pf] 125 mg IV NOW STA
07/12/23 14:29
Furosemide [Lasix] 40 mg IV NOW STA
Abnormal Lab Results
07/12/23
11:09
RDW 15.4 H %
(11.5-14.5)
Abs Immat Gran (auto) 0.1 H 10^3/uL
(0-0.05)
Absolute Neuts (auto) 7.1 H 10^3/uL
(1.4-6.5)
Absolute Lymphs (auto) 0.3 L 10^3/uL
(1.2-3.4)
Immature Gran % 0.6 H %
(0-0.5)
Neutrophils % 84.9 H %
(42.2-75.2)
Lymphocytes % 3.8 L %
(20.5-51.1)
pCO2 50 H mmHg
(32-35)
pO2 74 L mmHg
(83-108)
HCO3 31.0 H mmol/L
(21-28)
Sodium 127 L mmol/L
(135-145)
Potassium 5.7 H mmol/L
(3.5-5.1)
Chloride 90 L mmol/L
(98-107)
Carbon Dioxide 33 H mmol/L
(22-30)
BUN 18 H mg/dl
(7-17)
Creatinine 1.1 H mg/dL
(0.6-1.0)
Glucose 104 H mg/dl
(70-99)
Alkaline Phosphatase 292 H U/L
(38-126)
07/12/23 11:09
07/12/23 11:09
Vital Signs
Initial and Last Documented VS:
Initial Vital Signs
Temp Pulse Resp BP Pulse Ox
36.5 C 106 26 96/59 89
07/12/23 11:04 07/12/23 11:04 07/12/23 11:04 07/12/23 11:04 07/12/23 11:04
Last Documented Vital Signs
Temp Pulse Resp BP Pulse Ox
36.5 C 110 27 121/89 93
07/12/23 11:04 07/12/23 13:45 07/12/23 13:45 07/12/23 13:45 07/12/23 13:45
MDM/Problems Addressed
Differential Diagnosis Includes:
CHF, pneumonia, pulmonary embolism, bronchitis
MDM/Problems Addressed:
87-year-old female with history as above presents with worsening cough and breathing difficulties, hypoxia also increasing lethargy over the past 24 hours. She arrives to us initially with a soft blood pressure 96/59 but repeat 10 minutes later
increased to 145/72�she initially presented on EMS CPAP but was de-escalated to nonrebreather here with improvement in blood pressure. She is tachycardic EKG on arrival shows A-fib with RVR. She has mild tachypnea but no increased work of
breathing. She has hypoxia which improved with supplemental oxygen via nonrebreather. She is afebrile. Physical exam as above. Stat portable chest x-ray shows no clear acute pathology�no pneumothorax or pneumonia and no signs of CHF. IV placed
labs sent off including a CBC and a CMP will obtain an ABG. Will check troponin and a BNP. Will send for CTA to rule out PE and to better evaluate for possible occult pneumonia as certainly by history suspicious for pneumonia. Monitor closely and
plan for admission pending initial ED assessment.
Labs reviewed: CBC unremarkable, CMP shows hyponatremia, acute kidney injury, hyperkalemia. Troponin negative, BNP is slightly elevated at 1510. There could be some mild element of CHF we will dose with some Lasix both for hyperkalemia as well as
any component of volume overload. CTA of the chest shows no PE, no trisha edema, no pneumonia. She does still have frequent hacking cough and but her oxygenation has improved and on reassessment we were able to de-escalate to 5 L nasal
cannula�still increased from baseline but improved from nonrebreather mask. Will treat with IV steroid and DuoNeb for possible bronchitis or aspiration pneumonitis as she has had increased sputum production. Will plan for admission for continued
monitoring and treatment. Discussed with hospitalist for admission.
Chronic conditions affecting care:
CHF
*Radiology
Radiology exam reviewed: preliminary read by ED provider (Initial chest x-ray reviewed by me no acute disease) and radiology read reviewed
*Pulse Oximetry
Patient hypoxic: yes
*EKG
Interpreted by ED Provider?: Yes
Comparison EKG: no changes
Heart Rate: 103
Rate: tachycardiac
Rhythm: a-fib
[place]: normal axis
QRS Pattern: right bundle branch block
Ischemia: non-specific ST changes
*Critical Care Note
Total Time (30-74mins, 75-104mins- exclusive of procedures): 36
comment:
Critical care statement: A total of 36 minutes of critical care time was provided for this patient. This includes management of unstable vital signs, evaluation of the patient at bedside, frequent reassessment, discussion with
consultants/hospitalist, and review of pertinent medical records. This time was separate from time utilized to perform any aforementioned documented procedures
Data Reviewed
Review of Other/Old Records Reveals: Labs, Records and Discharge Summary
Source: patient, records, family and ambulance crew
Patient Management
Discussion with other providers: Hospitalist (Discussed with hospitalist)
Escalation/DeEscalation of care consider admission/obs:
Admission indicated
ED Attending Note
-
Portions of this chart may have been created with voice recognition software.� Occasional wrong word or��sound alike� substitutions may have occurred due to the inherent limitations of voice recognition software.
Discharge Plan
Departure
Patient Disposition: Admit
Date of Disposition: 07/12/23
Time of Disposition: 14:29
Admit to doctor: Rey
Presentation/result/management discussed w/ accepting MD/DO: Hospitalist
Discharge Problem:
Acute hypoxic respiratory failure, Bronchitis, Hyponatremia, Hyperkalemia
Prescriptions:
No Action
PreserVision AREDS 1 CAP capsule
1 cap PO HS
doxepin 25 MG capsule
25 mg PO HS
alprazolam 0.5 MG tablet
0.25 mg PO BID
Patient Comments:
05/13/23--- last filled 11/18/21 04/19/23 #60 tabs for 30 days from [facility]
aspirin 81 MG tablet,chewable
81 mg PO DAILY
risperidone 0.5 MG tablet
0.5 mg PO HS
amlodipine 2.5 mg Tablet
2.5 mg PO BID Qty: 60 0RF
spironolactone 25 mg Tablet
12.5 mg PO DAILY Qty: 30 0RF
atorvastatin [Lipitor] 20 mg Tablet
20 mg PO HS
polyethylene glycol 3350 [Miralax] 17 gram Powder In Packet
17 g PO DAILYPRN PRN (Reason: constipation)
fluoxetine [Prozac] 20 mg Capsule
20 mg PO DAILY
memantine 10 mg Tablet
10 mg PO BID
guaifenesin [Mucinex] 600 mg Tablet Extended Release 12hr
600 mg PO BIDPRN PRN (Reason: cough)
carvedilol 6.25 mg Tablet
6.25 mg PO BID 30 Days Qty: 60 0RF
furosemide [Lasix] 40 mg tablet
40 mg PO BID 30 Days Qty: 60 0RF
Interventions
Interventions:
*Risk Screen - Suicide Last Done: 07/12/23 11:04
*General Assessment Last Done: 07/12/23 11:04
*Neglect/Abuse Screening Last Done: 07/12/23 11:04
ED- Fall Risk Assessment Last Done: 07/12/23 11:10
*ED COVID-19 Vaccine History Last Done: 07/12/23 11:10
ED- Cardiac Assessment Last Done: 07/12/23 11:10
ED- Pulmonary Assessment Last Done: 07/12/23 11:10
Discharge Date and Time
Print Language: BERMUDIAN
[2023-07-12 11:26] LABS: INR 1.13; PT 14.5 Sec (11.4-14.6)
[2023-07-12 11:31] LABS: B.E. 5.1 mmol/L; O2 Saturation % 95.8 % (94-98); PCO2 50 mmHg (32-35); PO2 74 mmHg (83-108)
[2023-07-12 11:32] LABS: ALT (SGPT) 24 U/L (0-35); AST (SGOT) 30 U/L (14-36); Albumin 3.6 g/dl (3.5-5.0); Alkaline Phosphatase 292 U/L (38-126); Blood Urea Nitrogen 18 mg/dl (7-17); Carbon Dioxide 33 mmol/L (22-30); Chloride 90 mmol/L (98-107); Glucose 104 mg/dl (70-99); Potassium 5.7 mmol/L (3.5-5.1); Sodium 127 mmol/L (135-145); Total Bilirubin 0.5 mg/dl (0.2-1.3); Total Protein 6.9 g/dl (6.3-8.2); eGFR 49.24
[2023-07-12 11:44] LABS: NT-proBNP 1510 pg/ml; Troponin I < 0.012 ng/ml
[2023-07-12] MEDS: SOLU-MEDROL PF 125 MG IV (15:05)
[2023-07-12] MEDS: DUONEB 3 ML INH (15:05)
[2023-07-12] MEDS: LASIX 40 MG IV (15:05)
--- NOTE | 2023-07-12 15:37 | HPS.HSE ---
Addendum entered and electronically signed by Vivek Cervantes MD 07/12/23 16:42:
.
Original Note:
Family Physician
-
Family Physician: Jemal Allred
Chief Complaint
-
Shortness of breath, productive cough, hypoxia on oxygen
History of Present Illness
87-year-old female with history of advanced dementia is on chronic 3 L nasal cannula oxygen came from home where she lives with her family due to increased shortness of breath with hypoxia on her chronic oxygen. They report oxygen saturations of
60s. She has history of chronic cough but is been coughing more recently whitish in color. She is also had increased weakness per her daughter. the daughter has been giving meds with applesauce and giving pureed diet at home .While in the ER she
did develop low grade temp 100.2 with some tremors. In the ER she was placed on 5 L nasal cannula with improvement of oxygen to 94%. THe Patient unable to give review of systems. She is obvious dyspnea with tachypnea, cough and wheezing. No
appreciated vomiting diarrhea, rash or fever on exam.
PMH chronic hypoxic respiratory failure on chronic 3 L nasal cannula, chronic CHF, A-fib, HTN, advanced dementia, obesity
Medical History
Past Medical History
Past Medical History: Reports Other
Additional Past Medical History:
Paroxysmal Atrial Fibrillation
Chronic HFpEF
Essential Hypertension
Hyperlipidemia
Chronic RBBB
Advanced Dementia
Major Depressive Disorder
Dysphagia-failed swallow study April 2023 family refused PEG tube
Past Surgical History: Reports Other
Additional Past Surgical History:
Appendectomy
Social History
Unable to obtain full social history at this time due to: Dementia
Alcohol: None
Drug: None
Living: With Family
Family History
Family History: Unable to Obtain
Allergies / Home Medications
Allergies reflects when Allergies were last updated in [facility].
Home Medications with original date entered in [facility]
Allergy/Medication List:
Allergies
Allergy/AdvReac Type Severity Reaction Status Date / Time
paroxetine Allergy Unknown Verified 07/12/23 11:03
Sulfa (Sulfonamide Allergy Unknown Verified 07/12/23 11:03
Antibiotics)
Home Medications
alprazolam 0.5 mg tablet 0.5 mg PO BID Mental Health/Anxiety 04/21/20
aspirin 81 mg chewable tablet 81 mg PO DAILY Supplement 04/21/20
doxepin 25 mg capsule 25 mg PO QPM Mental Health/Anxiety 04/21/20
risperidone 0.5 mg tablet 0.5 mg PO QPM Mental Health/Anxiety 04/21/20
amlodipine 2.5 mg tablet 2.5 mg PO BID #60 tabs 12/23/21
spironolactone 25 mg tablet 12.5 mg (1/2 x 25 mg) PO DAILY #30 tabs 12/23/21
atorvastatin 20 mg tablet (Lipitor) 20 mg PO HS High Cholesterol 05/03/23
fluoxetine 20 mg capsule (Prozac) 20 mg PO DAILY Mental Health/Anxiety 05/03/23
memantine 10 mg tablet 10 mg PO BID Mental Health/Anxiety 05/03/23
carvedilol 6.25 mg tablet 6.25 mg PO BID 30 days #60 tabs 05/10/23
furosemide 40 mg tablet (Lasix) 40 mg PO BID 30 days #60 tabs 05/10/23
acetaminophen 325 mg tablet (Tylenol) 650 mg PO Q6HPRN PRN mild pain 07/12/23
Review of Systems
-
History Source: Other
A 12 point ROS was completed and negative except as noted: Yes
Constitutional: Reports Fever (temp 100.2 n Er ); Denies Chills
EENT: Denies Runny Nose
Respiratory: Reports Cough, Trouble Breathing (Wheezing) and Other (Tachypnea)
Cardiac: Denies Diaphoresis
Abdomen/GI: Denies Vomiting or Diarrhea
: Denies Incontinence
Musculoskeletal: Denies Joint Pain or Edema
Skin: Denies Rash
Neurological: Denies Weakness
Endocrine: Reports No Symptoms
Hematologic/Lymphatic: Reports No Symptoms
Psych: Reports Calm
Physical Exam
Vital Signs
Vital Signs
Temp Pulse Resp BP Pulse Ox
97.7 F 117 26 113/70 94
07/12/23 11:04 07/12/23 15:00 07/12/23 15:14 07/12/23 15:14 07/12/23 15:14
Physical Exam
General: Conversant and Other (Dyspnea with tachypnea); No Pain
HEENT: NormoCephalic, Anicteric, PERRLA, [place] Conjunctivae, No Ptosis and Oxygen (5 L nasal cannula)
Respiratory: Wheezes (Expiratory bilaterally), Rhonchi (Right lung field) and Other (Tachypnea)
Cardiac: S1/S2 and Irregular Rhythm (A-fib heart rate 103 bpm); No Murmur, Rub, Gallop or Peripheral Edema
Breast: Deferred by me
GI: Soft, Non Tender, Non Distended, Normal Bowel Sounds and No Hepatosplenomegaly
Rectal: Deferred by Provider
Genito-urinary: Deferred by me
Musculoskeletal: No Clubbing, No Cyanosis and No Edema
Skin: Warm and Dry; No Rash or Jaundice
Neuro: Awake, Alert, Oriented (To first name only) and Other (Hard of hearing); No Slurred Speech, Facial Droop or Tremors
Psych: Calm
Laboratory Results
-
07/12/23 11:09
07/12/23 11:09
Laboratory Results
PT 14.5 Sec (11.4-14.6) 07/12/23 11:09
INR 1.13 07/12/23 11:09
pH 7.40 (7.35-7.45) 07/12/23 11:09
pCO2 50 mmHg (32-35) H 07/12/23 11:09
pO2 74 mmHg (83-108) L 07/12/23 11:09
HCO3 31.0 mmol/L (21-28) H 07/12/23 11:09
Total Bilirubin 0.5 mg/dl (0.2-1.3) 07/12/23 11:09
AST 30 U/L (14-36) 07/12/23 11:09
ALT 24 U/L (0-35) 07/12/23 11:09
Alkaline Phosphatase 292 U/L (38-126) H 07/12/23 11:09
Troponin I < 0.012 ng/ml 07/12/23 11:09
Impression/Plan
-
Impression/plan:
Admit to IMU
#Acute on chronic hypoxic respiratory failure 2/2 possible Aspiration pneumonitis
#Hx COPD/Hx chronic hypercarbia
-History of dysphagia�failed swallow eval�refused PEG tube April 2023
-Check COVID, flu, sputum culture
-DuoNebs as needed
-hold current ABX
CT chest: No evidence of PE, linear bands lower lobes bilaterally likely atelectasis, cardiomegaly with moderate coronary artery calcification
CXR: Mild cardiomegaly. Linear foci left lower lobe may be chronic atelectasis versus scarring
#Hx dysphagia
- Pt is on palliative care
-Was recommended diet of modified pur�ed with nectar thick in April 2023
-She failed video swallow daughter did not want PEG tube due to experiencing with her father and wanted to continue continue with oral diet feb admit and Also today 07/12/23
- NPO except meds crushed with applesauce
- Consult speech for swallow eval
#HTN acclerated
209/150 give lopressor 5mg now and prn q6h SBP<165
-cont coreg
# Acute hyperkalemia
K5.7
-Continue Lasix
-Hold spironolactone due to hyperkalemia
#Renal insuff
Creat 1.1 > 0.9 05/10/2023
-Follow BMP
#Chronic heart failure preserved EF
BNP 1510 <2630
I/O, daily weights
-Continue Lasix 40 mg p.o. twice daily
-Hold spironolactone due to hyperkalemia
#Hx advanced dementia
Oriented to first name only
-Continue memantine
-supportive care, fall precaution
#Permanent A-fib
#Not on AC as out(Hx of falls )
-Continue Coreg 6.25 mg twice daily
-Follows with [facility]
EKG: A-fib with RVR, RBBB 103 bpm, QTc 421 MS , mild T depression lateral leads T wave inversion lateral leads
2D echo 05/04/2023: EF 55 to 60%, mild LVH, no wall abnormalities, mild TR
#Chronic RBBB
#History of bradycardia
#HTN�benign(history hypertensive encephalopathy)
-Continue amlodipine, Coreg with hold parameters
#HLD
-Continue atorvastatin
#Anxiety/depression
-Continue doxepin, Prozac, risperidone
-Continue alprazolam with hold parameters for sedation
#History falls
-Fall precautions
-PT/OT eval
DVT prophylaxis
Subcu Lovenox
DNR per daughter via phone with attending Dr cervantes at 1600
[2023-07-12] MEDS: LOPRESSOR 5 MG IV (16:18)
--- NOTE | 2023-07-12 16:42 | W.PN.UPDATE ---
Addendum entered and electronically signed by Vivek Cervantes MD 07/12/23 16:48:
Permanent atrial fibrillation
Original Note:
Update Note
Progress Note Update
I saw and examined the patient.
The LEGAL SUMMER INTERN or PA's note was reviewed and I agree with the note.
Comment:
Female with past medical history of chronic hypoxic respiratory failure, advanced dementia, dysphagia, CHF, hypertension, proximal atrial fibrillation, depression came to the hospital with acute on chronic hypoxic respiratory failure likely
secondary to aspiration event. Patient symptoms started this morning after she was eating. Spoke with daughter in [place] and she is not interested in hospice at this time. Patient was seen by speech therapy last admission and was recommended
feeding tube which daughter refused. Given advanced dementia and high risk of aspiration, patient is high risk for readmission due to aspiration. Currently will keep patient n.p.o. other than meds in pur�e. Speech to see again. Received IV Lasix
in the ED. Also hypertensive in the ED so will give metoprolol. Discussed CODE STATUS with daughter, DNR/DNI. Per daughter at home patient was on pur�ed diet with thick liquids. Patient is currently under palliative care. Daughter does
verbalize her understanding of patient continue to have risk of aspiration.
General: Conversant and Other (Dyspnea with tachypnea)
HEENT: NormoCephalic, Anicteric, PERRLA, [place] Conjunctivae, No Ptosis and Oxygen (5 L nasal cannula)
Respiratory: b/l wheezing
Cardiac: S1/S2 and Irregular Rhythm,tachycardia
GI: Soft, Non Tender, Non Distended, Normal Bowel Sounds and No Hepatosplenomegaly
Genito-urinary: Deferred by me
Musculoskeletal: No Edema
Neuro: Awake, Alert, Oriented (To first name only) and Other (Hard of hearing)
Psych: Calm
I spent a total of 78 minutes with the patient or on the floor. More than 50% of this time involved counseling and coordination of care.
[2023-07-12 16:44] LABS: COVID-19 Antigen Negative (Negative)
[2023-07-12 18:03] LABS: Urine Albumin Negative (Neg - Trace); Urine Bilirubin Negative (Negative); Urine Character Very Cloudy (Clear); Urine Color Yellow; Urine Glucose Negative (Negative); Urine Ketone Negative (Negative); Urine Leukocyte 2+ (Negative); Urine Nitrite Positive (Negative); Urine Occult Blood 1+ (Negative); Urine Urobilinogen Negative (Neg - 1+)
[2023-07-12 18:08] LABS: Urine Bacteria Many (Negative); Urine Red Blood Cell None Seen /HPF (0-2); Urine Squamous Cell 0-2 /LPF (Few)
[2023-07-12] MEDS: ZOSYN 50 IV (20:05)
[2023-07-12] MEDS: TYLENOL/FEVERALL 650 MG RECTAL (21:51)
[2023-07-12] MEDS: LOVENOX 40 MG SC (22:07)
[2023-07-12] MEDS: NORVASC 2.5 MG PO (22:08)
[2023-07-12] MEDS: COREG 6.25 MG PO (22:09)
[2023-07-12] MEDS: LASIX 40 MG PO (22:10)
[2023-07-12] MEDS: NAMENDA 10 MG PO (22:10)
[2023-07-12] MEDS: XANAX 0.5 MG PO (22:10)
[2023-07-12] MEDS: RISPERDAL 0.5 MG PO (22:11)
[2023-07-12] MEDS: LIPITOR 20 MG PO (22:11)
[2023-07-12] MEDS: SINEQUAN 25 MG PO (22:11)
--- NOTE | 2023-07-12 23:11 | W.PN.UPDATE ---
Update Note
Progress Note Update
Reported by the nursing staff that the patient is hypoxic with SPO2 in 80% with 4 L of o2, febrile 101.2, bp 111/69, hr 107. PRN Tylenol given. Blood and sputum culture are pending. Abg was done earlier (Ph 7.40, Pco2 50, Po2 74, Hco3 31.0) will
start patient on Bipap and repeat abg in am. Spoke to the daughter/ Roshan and updated with the new changes and current plan.
[2023-07-13] VITALS (18 sets, daily range): BP systolic 80–107; BP diastolic 53–72; PULSE 2–90; BMI 31.0
--- NOTE | 2023-07-13 00:44 | PTCARENOTE ---
Rec'd pt from ED, Oriented to self only. Pt has occasional wet, gurgly cough. Encouraged to cough and spit secretions, oral suction as tolerated. Pt did tolerate PO medications crushed in applesauce per MD order, with very small bites. Maintaining
SaO2>92 on bipap. Pt is tolerating bipap mask, sleeping. Bed alarm in place for pt safety. HOB maintained> 45 degrees per MD order.
[2023-07-13] MEDS: ZOSYN 50 IV ×4 (01:23→21:10)
[2023-07-13 04:16] LABS: B.E. 3.3 mmol/L; HCO3 27.8 mmol/L (21-28); PCO2 41 mmHg (32-35); PO2 160 mmHg (83-108); pH 7.44 (7.35-7.45)
[2023-07-13 05:08] LABS: % Basophils 0.4 % (0-2); % Immature Granulocytes 0.6 % (0-0.5); % Lymphocytes 5.3 % (20.5-51.1); % Monocytes 4.3 % (1.7-9.3); % Neutrophils 89.4 % (42.2-75.2); Absolute Basophils 0.1 10^3/uL (0-0.2); Absolute Immature Granulocytes 0.1 10^3/uL (0-0.05); Absolute Lymphocytes 0.7 10^3/uL (1.2-3.4); Absolute Monocytes 0.6 10^3/uL (0.1-0.6); Absolute Neutrophils 12.2 10^3/uL (1.4-6.5); Hematocrit 36.6 % (37.0-47.0); Hemoglobin 12.4 g/dL (12.0-16.0); Mean Corp Hgb Conc. 33.9 g/dL (33.0-37.0); Mean Corpuscular Hgb 27.3 pg (27.0-31.0); Mean Corpuscular Volume 80.6 fL (81.0-99.0); Mean Platelet Volume 9.7 fL (7.4-10.4); Nucleated Red Blood Cells % 0 %; Platelet Count 258 10^3/uL (130-400); Red Blood Cell Count 4.54 10^6/uL (4.20-5.40); Red Cell Dist. Width 15.5 % (11.5-14.5); White Blood Cell Count 13.6 10^3/uL (4.8-10.8)
[2023-07-13 05:29] LABS: Blood Urea Nitrogen 26 mg/dl (7-17); Calcium 9.3 mg/dl (8.4-10.2); Carbon Dioxide 25 mmol/L (22-30); Chloride 91 mmol/L (98-107); Estimated Creatinine Clearance 25 ml/min; Glucose 128 mg/dl (70-99); Potassium 4.7 mmol/L (3.5-5.1); Sodium 128 mmol/L (135-145); eGFR 31.41
--- NOTE | 2023-07-13 08:45 | PTCARENOTE ---
Rec'd pt this AM. on Bipap, very lethargic. Finally able to arouse pt. RT took her off bipap and placed on 4L NC. required increase to 6L. O2 sat 92%. BP 99/66. Discussed with Dr. Cervantes. BP meds held. Pt took meds with Speech therapist and RN
supervision with much difficulty swallowing. only able to take small amounts of pills crushed in applesauce. ST will update MD.
--- NOTE | 2023-07-13 08:55 | PTOTSP ---
Speech Language Pathology
Pt seen for clinical bedside swallow evaluation. Well known to [employer] service at with 4 previous VSEs completed. Most recent VSE completed 05/09/23 with recommendations for NPO. Findings from VSE: silent aspiration of thin liquids and aspiration
of mildly thick liquids with ineffective cough response; backflow from esophagus to pyriform sinuses. Risk for top-down and bottom-up aspiration. Family decided to have pt continue to eat/drink. Daughter notified hospitalist that [employer], pt was
recommended pureed solids/'thick liquids' per home care [employer]. However, pt currently admitted with suspected aspiration event with meal at home on this diet.
This date, P.O. trials of puree and moderately thick liquids via tsp provided. Initially, significantly prolonged oral phase noted with bolus formation and A-P transit taking up to 30 seconds. At times, no laryngeal elevation palpated and question
whether swallow was initiated. As trials progressed, more timely swallow initiation noted. No overt signs of aspiration, but pt with hx of silent aspiration.
Recommend:
(1) NPO
(2) If comfort feeds are to be initiated, IDDSI Level 4 Solids (Puree) and Moderately Thick liquids would be safest, although aspiration still possible both during swallow and following swallow from bottom-up aspiration
(3) If will be on comfort feeds, liquids via tsp, slow rate, sit upright, ensure pt swallows prior to next bite/sip
(4) If meds are to be provided P.O., crush in puree
(5) [employer] to sign off as pt unable to actively participate in therapy. Please reconsult as indicated.
[2023-07-13] MEDS: COREG PO (09:03)
[2023-07-13] MEDS: LOW STRENGTH ASPIRIN 81 MG PO (09:03)
[2023-07-13] MEDS: LASIX PO (09:03)
[2023-07-13] MEDS: NAMENDA 10 MG PO ×2 (09:03→21:11)
[2023-07-13] MEDS: NORVASC PO (09:04)
[2023-07-13] MEDS: XANAX PO (09:04)
[2023-07-13] MEDS: NSS 500 IV ×2 (10:30→11:44)
--- NOTE | 2023-07-13 11:52 | PTCARENOTE ---
Pt hypotensive with sys in 80s. Dr. Cervantes at bedside. Bolus ordered x2. no urine output. bladder scan 287ml currently. arousable but very lethargic.
--- NOTE | 2023-07-13 12:27 | PTCARENOTE ---
Pt with no urine output this AM. Bladder scanned for 287. MD aware.
--- NOTE | 2023-07-13 12:44 | W.PN.HOSP.TC ---
Today's Communication/Plan
-
Monitor vital signs and see plan
Wean oxygen as tolerated
Daughter is okay with comfort feeds however patient is not awake enough to be fed. At this time I think feeding her will make her symptoms even worse.
She is hospice appropriate, discussed multiple times with daughter. Patient is currently on palliative care and daughter was initially hesitant to be switched to hospice however is now considering. She will let us know with her decision. She
hopes to take patient home eventually
cw IVF
hold other antihypertensives
Monitor renal function
Bladder scan
Assessment / Plan
Assessment / Plan
General: Lethargic
HEENT: NormoCephalic, Anicteric, on NC
Respiratory: mild wheezing; profuse rhonchi
Cardiac: S1/S2 and Irregular Rhythm
GI: Soft, Non Tender, Non Distended, Normal Bowel Sounds
Musculoskeletal: No Edema
Neuro: Awake and Other (Hard of hearing)
Psych: Calm
Acute on chronic hypoxic respiratory failure 2/2 possible Aspiration pneumonitis
Overnight was placed on BiPAP and is now on nasal cannula
#Hx COPD/Hx chronic hypercarbia
-History of dysphagia�failed swallow eval�refused PEG tube April 2023
-covid flu neg
-DuoNebs as needed
overnight fever
CT chest: No evidence of PE, linear bands lower lobes bilaterally likely atelectasis, cardiomegaly with moderate coronary artery calcification
CXR: Mild cardiomegaly. Linear foci left lower lobe may be chronic atelectasis versus scarring
Suspect TME 2/2 aspiration and sepsis
monitor
Suspect sepsis 2/2 UTI and aspiration pneumonitis
bcx pending
follow fever curve
cw abx
Suspect UTI
Follow urine culture
Continue with antibiotics
#Hx dysphagia
- Pt is on palliative care
-Was recommended diet of modified pur�ed with nectar thick in April 2023
-She failed video swallow daughter did not want PEG tube due to experiencing with her father and wanted to continue continue with oral diet feb admit and Also today 07/12/23
- NPO for now; spoke with daughter 07/11 and 07/12. She is okay with patient having comfort feeds. Told her that we will only be fed if patient is awake enough and wants to be fed. At this time I feel feeding her will make her symptoms worse.
Discussed goals of care and plan with worsening symptoms and poor prognosis in length with daughter. Patient is currently under palliative care and daughter is in touch with them and is having ongoing talk with possible hospice at home. Daughter
will arrive later today and will let us know with updates. She refused hospice on last admission and 07/11
- Consult speech for swallow eval
#HTN acclerated
on admission and now BP is low
Hypotension
giving fluid challenge; hold Lasix, antihypertensive
# Acute hyperkalemia
resolved
-Hold spironolactone due to hyperkalemia
#LETITIA
-Follow BMP
monitor
bladder scan
Hyponatremia
Monitor
#Chronic heart failure preserved EF
BNP 1510 <2630
Does not appear to be in fluid overload
Hold Lasix at this time given hypotension
-Continue Lasix 40 mg p.o. twice daily
-Hold spironolactone
#Hx advanced dementia
Oriented to first name only
-Continue memantine if able
-supportive care, fall precaution
#Permanent A-fib
#Not on AC as out(Hx of falls )
on coreg which is on hold
-Follows with [facility]
EKG: A-fib with RVR, RBBB 103 bpm, QTc 421 MS , mild T depression lateral leads T wave inversion lateral leads
2D echo 05/04/2023: EF 55 to 60%, mild LVH, no wall abnormalities, mild TR
#Chronic RBBB
#History of bradycardia
#HTN�benign(history hypertensive encephalopathy)
-Continue amlodipine, Coreg with hold parameters
#HLD
#Anxiety/depression
-Continue doxepin, Prozac, risperidone
-Continue alprazolam with hold parameters for sedation
#History falls
-Fall precautions
-PT/OT eval
DVT prophylaxis
heparin
DNR per daughter
I spent a total of 56 minutes with the patient or on the floor. More than 50% of this time involved counseling and coordination of care.
Anticipated Discharge: > 48 hours
Subjective/Interval History
-
Date of Service: July 13, 2023
lethargic
Objective Data
-
Labs:
Laboratory Results
07/13/23 07/13/23
04:01 04:44
WBC 13.6 H
Hgb 12.4
Hct 36.6 L
Plt Count 258
HCO3 27.8
Sodium 128 L
Potassium 4.7
Chloride 91 L
Carbon Dioxide 25
BUN 26 H
Creatinine 1.6 H
Glucose 128 H
Calcium 9.3
Vital Signs:
Vital Signs
Temp Pulse Resp BP Pulse Ox
97.9 F 66 13 84/61 96
07/13/23 07:15 07/13/23 11:19 07/13/23 11:19 07/13/23 11:19 07/13/23 11:19
--- NOTE | 2023-07-13 14:26 | PTCARENOTE ---
Family at bedside. Pt awake and talking with family.
[2023-07-13] MEDS: HEPARIN 5000 UNITS SC (15:14)
--- NOTE | 2023-07-13 15:25 | PTCARENOTE ---
Family at bedside. Family report that they spoke to Dr. Cervantes today and are interested in home hospice for pt. Requesting referral to [facility]. MD notified and referral made to Case Management for hospice consult.
--- NOTE | 2023-07-13 15:44 | CM ---
Addendum entered by Xiomy Askew RN 07/13/23 17:40:
Per nurse; confused.
Spoke with daughter Roshan again; she agrees to d/c home tomorrow with Hospice at noon by ambulance. IMM done and copy sent to her email at [email or web address].
OO[facility] DNR form on chart for MD signature.
Plan home tomorrow at 12noon by ambulance with Hospice.
Original Note:
Patient with Dx Acute on chronic hypoxic respiratory failure 2/2 possible Aspiration pneumonitis. O2 6L. BiPAP. PT/OT Evals held. Per nurse assessment; lethargic. ST Eval - NPO.
Spoke with daughter Roshan Marino; the patient resides with her daughter, son in law, grand-daughter & grand-daughter's family in a 2 story house with ramp, and first floor bedroom/bath.
The patient has been assisted with ADLs by her daughter.
She requires assist of 2 to transfer with her RW to w/c or to commode.
DME - hospital bed, w/c, commode, home O2 concentrator/portables through [employer]- O2 goes up to 5L
VN - current with [facility] for SN
SNF - [facility]
Pharmacy - [place]
CM Consult: Hospice
Explained hospice philosophy and benefits. Daughter had prior experiences with [facility] and does not want them again. She would like to have her mother return home with Hospice.
Referral to [facility].
Plan home with Hospice.
[2023-07-13] MEDS: RISPERDAL 0.5 MG PO (16:57)
[2023-07-13] MEDS: SINEQUAN 25 MG PO (16:57)
[2023-07-13] MEDS: XANAX 0.5 MG PO (21:11)
[2023-07-13] MEDS: LIPITOR 20 MG PO (21:11)
[2023-07-14] VITALS (7 sets, daily range): BP systolic 88–96; BP diastolic 53–64
[2023-07-14] MEDS: HEPARIN 5000 UNITS SC ×2 (00:12→09:26)
[2023-07-14] MEDS: ZOSYN 50 IV ×2 (03:02→09:25)
[2023-07-14 05:36] LABS: % Basophils 0.1 % (0-2); % Immature Granulocytes 0.7 % (0-0.5); % Lymphocytes 7.8 % (20.5-51.1); % Monocytes 7.2 % (1.7-9.3); % Neutrophils 84.2 % (42.2-75.2); Absolute Immature Granulocytes 0.1 10^3/uL (0-0.05); Absolute Lymphocytes 0.8 10^3/uL (1.2-3.4); Absolute Monocytes 0.7 10^3/uL (0.1-0.6); Absolute Neutrophils 8.3 10^3/uL (1.4-6.5); Hematocrit 33.8 % (37.0-47.0); Hemoglobin 11.2 g/dL (12.0-16.0); Mean Corp Hgb Conc. 33.1 g/dL (33.0-37.0); Mean Corpuscular Hgb 27.3 pg (27.0-31.0); Mean Corpuscular Volume 82.2 fL (81.0-99.0); Nucleated Red Blood Cells % 0 %; Platelet Count 222 10^3/uL (130-400); Red Blood Cell Count 4.11 10^6/uL (4.20-5.40); Red Cell Dist. Width 15.9 % (11.5-14.5); White Blood Cell Count 9.9 10^3/uL (4.8-10.8)
[2023-07-14 06:09] LABS: Blood Urea Nitrogen 37 mg/dl (7-17); Calcium 8.9 mg/dl (8.4-10.2); Carbon Dioxide 26 mmol/L (22-30); Chloride 97 mmol/L (98-107); Estimated Creatinine Clearance 30 ml/min; Glucose 103 mg/dl (70-99); Potassium 3.8 mmol/L (3.5-5.1); Sodium 132 mmol/L (135-145)
--- NOTE | 2023-07-14 07:48 | PTOTSP ---
Reviewed chart and noted pt to be dc'd home on hospice today. PT will sign off. Evaluation not completed.
[2023-07-14] MEDS: LOW STRENGTH ASPIRIN PO (09:22)
[2023-07-14] MEDS: NAMENDA PO (09:22)
[2023-07-14] MEDS: XANAX PO (09:23)
--- NOTE | 2023-07-14 09:29 | HOSPNOTE ---
Late entry 07/12 spoke with family and discussed hospice and the philosophy. The family is in agreement with hospice care and the daughter will be the primary caregiver. Equipment was ordered and will be delivered this am 07/13 and the patient will be
transported home via ambulance. OOH DNR needed on chart. Transport is scheduled for 12noon. Attending and case management aware of plan.
--- NOTE | 2023-07-14 09:36 | PTCARENOTE ---
Upon assessment, pt lethargic and minimally responsive. Resting comfortably. PO medications held at this time d/t mental status.
--- NOTE | 2023-07-14 11:38 | W.PN.HOSP.TC ---
Today's Communication/Plan
-
monitor vitals
see plan
on o2
plan for hospice at home today
Daughter understands discontinuing blood pressure medications at this time
Time of discharge 38 minutes
Assessment / Plan
Assessment / Plan
General: Lethargic
HEENT: NormoCephalic, Anicteric, on NC
Respiratory: mild wheezing; profuse rhonchi
Cardiac: S1/S2 and Irregular Rhythm
GI: Soft, Non Tender, Non Distended, Normal Bowel Sounds
Musculoskeletal: No Edema
Neuro: Awake and Other (Hard of hearing)
Psych: Calm
Acute on chronic hypoxic respiratory failure 2/2 possible Aspiration pneumonitis
Overnight was placed on BiPAP and is now on nasal cannula
#Hx COPD/Hx chronic hypercarbia
-History of dysphagia�failed swallow eval�refused PEG tube April 2023
-covid flu neg
-DuoNebs as needed
overnight fever
CT chest: No evidence of PE, linear bands lower lobes bilaterally likely atelectasis, cardiomegaly with moderate coronary artery calcification
CXR: Mild cardiomegaly. Linear foci left lower lobe may be chronic atelectasis versus scarring
Suspect TME 2/2 aspiration and sepsis
monitor
Suspect sepsis 2/2 UTI and aspiration pneumonitis
bcx pending
follow fever curve
cw abx
Suspect UTI
Follow urine culture
Continue with antibiotics
#Hx dysphagia
- Pt is on palliative care
-Was recommended diet of modified pur�ed with nectar thick in April 2023
-She failed video swallow daughter did not want PEG tube due to experiencing with her father and wanted to continue continue with oral diet feb admit and Also today 07/12/23
- NPO for now; spoke with daughter 07/11 and 07/12. She is okay with patient having comfort feeds. Told her that we will only be fed if patient is awake enough and wants to be fed. At this time I feel feeding her will make her symptoms worse.
Discussed goals of care and plan with worsening symptoms and poor prognosis in length with daughter. Patient was under palliative care. Daughter spoke with hospice 07/13/23 and is agreeable to take patient home on home hospice. [facility] and plan for to discharge today on home hospice.
Daughter is aware about persistent aspiration and is okay to have patient on comfort feeds.
#HTN acclerated
on admission and now BP is low
Hypotension
giving fluid challenge; hold Lasix, antihypertensive
# Acute hyperkalemia
resolved
-Hold spironolactone due to hyperkalemia
#LETITIA
-Follow BMP
monitor
bladder scan
Hyponatremia
Monitor
#Chronic heart failure preserved EF
BNP 1510 <2630 on
Does not appear to be in fluid overload
Hold Lasix at this time given hypotension
-Hold spironolactone
#Hx advanced dementia
Oriented to first name only
-Continue memantine if able
-supportive care, fall precaution
#Permanent A-fib
#Not on AC as out(Hx of falls )
on coreg which is on hold
-Follows with [facility]
EKG: A-fib with RVR, RBBB 103 bpm, QTc 421 MS , mild T depression lateral leads T wave inversion lateral leads
2D echo 05/04/2023: EF 55 to 60%, mild LVH, no wall abnormalities, mild TR
#Chronic RBBB
#History of bradycardia
#HTN�benign(history hypertensive encephalopathy)
hold amlodipine, Coreg with hold parameters
#HLD
#Anxiety/depression
-Continue doxepin, Prozac, risperidone
-Continue alprazolam with hold parameters for sedation
#History falls
-Fall precautions
-PT/OT eval
DVT prophylaxis
heparin
DNR per daughter
Anticipated Discharge: Today
Subjective/Interval History
-
Date of Service: July 14, 2023
on o2
Objective Data
-
Labs:
Laboratory Results
07/14/23
05:01
WBC 9.9
Hgb 11.2 L
Hct 33.8 L
Plt Count 222
Sodium 132 L
Potassium 3.8
Chloride 97 L
Carbon Dioxide 26
BUN 37 H
Creatinine 1.3 H
Glucose 103 H
Calcium 8.9
Vital Signs:
Vital Signs
Temp Pulse Resp BP Pulse Ox
96.7 F L 75 11 91/62 96
07/14/23 07:23 07/14/23 08:00 07/14/23 08:00 07/14/23 08:00 07/14/23 09:48
I&O
07/13/23 07/14/23 07/15/23
06:59 06:59 06:59
Intake Total 1200 / 1200
Output Total 500 / 500
Balance 700 / 700
--- NOTE | 2023-07-14 11:56 | CM ---
Patient with Dx Acute on chronic hypoxic respiratory failure 2/2 possible Aspiration pneumonitis. O2 6L midflow. Per nurse assessment; lethargic. ST Eval - NPO.
Spoke with daughter Roshan Marino; she requests later ambulance transport time as she was notified by [employer] that hospital bed & O2 delivery would be 11:30 to 12:30 today. Informed her that transport was rescheduled for 1:30pm and she is okay with
that. She plans on asking hospice nurse to come at 2pm. IMM completed yesterday.
Plan home today by ambulance with Hospice.
--- NOTE | 2023-07-14 12:05 | W.DCSUMMARY ---
Discharge Summary
Discharge Data
Date of Admission: 07/12/23
Date of Discharge: 07/14/23
-
Pending Results: No
Hospital Course
87-year-old female with past medical history of dysphagia, anxiety, depression, dementia, hypertension, hyperlipidemia, pulmonary fibrillation, CHF, hypertension came to the hospital with acute on chronic hypoxic respiratory failure secondary to
aspiration. Patient initially also was suspected to have urinary tract infection so was treated with antibiotics. Due to patient advanced dementia and persistent dysphagia patient was found to have elevated aspiration risk. Patient was seen by
speech therapy who recommended NPO. Patient condition continued to get worse and daughter did not wanted any feeding tube. Daughter later decided to do take patient home on hospice. Patient hospice was then arranged and patient was discharged on
07/14/2023 on home hospice.
Discharge Plan
-
Patient Disposition: Home with Hospice
Discharge Diagnosis/Procedures: Acute on chronic hypoxic respiratory failure secondary to aspiration
Suspect sepsis secondary to UTI and aspiration pneumonitis
Toxic metabolic encephalopathy
Persistent dysphagia due to advanced dementia
Acute kidney injury
Diet: Other diet
Additional Diets: Comfort feeding
Activity: As tolerated
Driving Restrictions: No driving
Bathing Restrictions: None
Other Services: Hospice
Referrals:
Jemal Allred MD [Family Provider] - in less than 1 week
Prescriptions:
New
morphine concentrate 100 mg/5 mL (20 mg/mL) Solution
5 mg PO Q3HPRN PRN (Reason: moderate pain and/or dyspnea) Qty: 15 0RF
Rx Instructions:
5mg or 0.25mL every 3 hours as needed
Continued
doxepin 25 MG capsule
25 mg PO QPM
alprazolam 0.5 MG tablet
0.5 mg PO BID
risperidone 0.5 MG tablet
0.5 mg PO QPM
memantine 10 mg Tablet
10 mg PO BID
acetaminophen [Tylenol] 325 mg Tablet
650 mg PO Q6HPRN PRN (Reason: mild pain)
Discontinued
aspirin 81 MG tablet,chewable
81 mg PO DAILY
amlodipine 2.5 mg Tablet
2.5 mg PO BID Qty: 60 0RF
spironolactone 25 mg Tablet
12.5 mg PO DAILY Qty: 30 0RF
atorvastatin [Lipitor] 20 mg Tablet
20 mg PO HS
fluoxetine [Prozac] 20 mg Capsule
20 mg PO DAILY
carvedilol 6.25 mg Tablet
6.25 mg PO BID 30 Days Qty: 60 0RF
furosemide [Lasix] 40 mg tablet
40 mg PO BID 30 Days Qty: 60 0RF
Discharge Orders:
Discharge Patient (As Directed); Ordered 07/14/23
Ordered By: Vivek Cervantes
Discharge Date and Time
Discharge Date/Time: 07/14/23 13:41
Print Language: VENEZUELAN
--- NOTE | 2023-07-14 13:24 | PTCARENOTE ---
Pt for d/c home on hospice. Spoke with Daughter Roshan to review d'c instructions, verbalizes understanding. IV site and monitor equipment removed. Paperwork and morphine RX in folder sent with EMS staff. D/c home via ambulance stretcher.
== END 2023-07-14 13:41 | disposition hospice, home (50) | DRG 871 ==
LOC: IMU 16:37
PROVIDERS: Clinical Nurse Specialist Family Health; Nurse Practitioner Family; ADMITTING PHYSICIAN Internal Medicine; EMERGENCY PHYSICIAN Emergency Medicine; FAMILY PHYSICIAN Internal Medicine
PROC: 5A09357 Assistance with Respiratory Ventilation, Less than 24 Consecutive Hours, Continuous Positive Airway Pressure (ICD-10-PCS; 2023-07-12)
DX: A41.9 Sepsis, unspecified organism (principal); G92.8 Other toxic encephalopathy; J69.0 Pneumonitis due to inhalation of food and vomit; J96.21 Acute and chronic respiratory failure with hypoxia; I50.32 Chronic diastolic (congestive) heart failure; E87.1 Hypo-osmolality and hyponatremia; N17.9 Acute kidney failure, unspecified; I48.21 Permanent atrial fibrillation; N39.0 Urinary tract infection, site not specified; I11.0 Hypertensive heart disease with heart failure; E87.5 Hyperkalemia; F32.9 Major depressive disorder, single episode, unspecified; R13.10 Dysphagia, unspecified; F41.9 Anxiety disorder, unspecified; F03.C0 Unspecified dementia, severe, without behavioral disturbance, psychotic disturbance, mood disturbance, and anxiety; I45.10 Unspecified right bundle-branch block; J44.89 Other specified chronic obstructive pulmonary disease; E78.00 Pure hypercholesterolemia, unspecified; I48.0 Paroxysmal atrial fibrillation; Z66 Do not resuscitate; Z99.81 Dependence on supplemental oxygen; Z11.52 Encounter for screening for COVID-19; Z79.82 Long term (current) use of aspirin; Z88.2 Allergy status to sulfonamides; Z88.8 Allergy status to other drugs, medicaments and biological substances
CPT/HCPCS: 36600; 71045; 71275; 80048; 80053; 81003; 81015; 82805; 83880; 84484; 85025; 85610; 87040; 87086; 87088; 87186; 87502; 87811; 92610; 93005; 94640; 94660; 96365; 96375; 99291; Q9967